=== PATIENT | female | born 1960 | race Caucasian/White ===

== ENCOUNTER 2024-09-01 07:18 | Outpatient (RCR) | payer OTHER, SELFPAY ==
[2024-08-26 08:17] LABS: Basophils % (Auto) 0 % (0-2.5); Eosinophils % (Auto) 0 % (0-10); Hematocrit 33.3 % (36.0-46.0); Hemoglobin 11.2 g/dL (12.0-16.0); Immature Granulocytes % (Auto) 2 % (0-0); Immature Granulocytes Auto 0.22 Thou/mm3 (0.00-0.00); Lymphocytes # (Auto) 0.9 Thou/mm3 (1.0-4.8); Lymphocytes % (Auto) 7 % (10-50); Mean Corpuscular HGB Conc 33.6 g/dl (31.0-37.0); Mean Corpuscular Hemoglobin 29.1 pg (25.0-35.0); Mean Corpuscular Volume 87 fL (80-100); Monocytes # (Auto) 0.6 Thou/mm3 (0.0-0.8); Monocytes % (Auto) 4 % (0-12); Neutrophils # (Auto) 12.4 Thou/mm3 (1.8-7.7); Neutrophils % (Auto) 87 % (37-80); Nucleated Red Blood Cell % 0 /100 WBC (0); Platelet Count 298 Thou/mm3 (140-440); RDW Standard Deviation 40.9 fL (36.4-46.3); Red Blood Count 3.85 Miln/mm3 (4.00-5.20); White Blood Count 14.2 Thou/mm3 (3.6-11.0)
[2024-08-26 08:46] LABS: Alanine Aminotransferase 17 U/L (10-49); Albumin, Serum 4.2 gm/dL (3.4-4.8); Albumin/Globulin Ratio 1.6 (1.2-2.2); Alkaline Phosphatase 79 U/L (46-116); Anion Gap 4 (7-16); Aspartate Amino Transferase 13 U/L (0-34); BUN/Creatinine Ratio 28 Ratio (12-20); Bilirubin,Total 0.3 mg/dL (0.3-1.2); Blood Urea Nitrogen 17 mg/dL (9-23); Calcium 10.6 mg/dL (8.3-10.6); Calcium (Corrected) 10.6 mg/dL (8.5-10.1); Carbon Dioxide 23.6 mMol/L (20.0-31.0); Chloride 108 mMol/L (98-107); Creatinine (Component) 0.6 mg/dL (0.6-1.3); Globulin 2.6 gm/dL (2.3-3.5); Glucose 132 mg/dL (74-106); Osmolality,Calculated 275 (275-295); Sodium 136 mMol/L (136-145); Total Protein 6.8 gm/dL (5.7-8.2); eGFR > 60 See Note
[2024-08-29 11:35] LABS: Basophils # (Auto) 0.1 Thou/mm3 (0.0-0.2); Basophils % (Auto) 1 % (0-2.5); Eosinophils # (Auto) 0.4 Thou/mm3 (0.0-0.5); Eosinophils % (Auto) 4 % (0-10); Hematocrit 34.8 % (36.0-46.0); Hemoglobin 11.6 g/dL (12.0-16.0); Immature Granulocytes % (Auto) 0 % (0-0); Immature Granulocytes Auto 0.04 Thou/mm3 (0.00-0.00); Lymphocytes # (Auto) 2.6 Thou/mm3 (1.0-4.8); Lymphocytes % (Auto) 25 % (10-50); Mean Corpuscular HGB Conc 33.3 g/dl (31.0-37.0); Mean Corpuscular Hemoglobin 29.3 pg (25.0-35.0); Mean Corpuscular Volume 88 fL (80-100); Monocytes # (Auto) 0.9 Thou/mm3 (0.0-0.8); Monocytes % (Auto) 8 % (0-12); Neutrophils # (Auto) 6.5 Thou/mm3 (1.8-7.7); Neutrophils % (Auto) 62 % (37-80); Nucleated Red Blood Cell % 0 /100 WBC (0); Platelet Count 238 Thou/mm3 (140-440); RDW Standard Deviation 44.5 fL (36.4-46.3); Red Blood Count 3.96 Miln/mm3 (4.00-5.20); White Blood Count 10.5 Thou/mm3 (3.6-11.0)
[2024-08-29 12:01] LABS: Alanine Aminotransferase 15 U/L (10-49); Albumin, Serum 3.7 gm/dL (3.4-4.8); Albumin/Globulin Ratio 1.5 (1.2-2.2); Alkaline Phosphatase 70 U/L (46-116); Anion Gap 3 (7-16); Aspartate Amino Transferase 13 U/L (0-34); BUN/Creatinine Ratio 30 Ratio (12-20); Bilirubin,Total 0.2 mg/dL (0.3-1.2); Blood Urea Nitrogen 15 mg/dL (9-23); Calcium 9.7 mg/dL (8.3-10.6); Calcium (Corrected) 9.9 mg/dL (8.5-10.1); Carbon Dioxide 26.4 mMol/L (20.0-31.0); Chloride 108 mMol/L (98-107); Creatinine (Component) 0.5 mg/dL (0.6-1.3); Globulin 2.4 gm/dL (2.3-3.5); Glucose 88 mg/dL (74-106); Osmolality,Calculated 273 (275-295); Potassium 4.2 mMol/L (3.4-5.1); Sodium 137 mMol/L (136-145); Total Protein 6.1 gm/dL (5.7-8.2); eGFR > 60 See Note
== END 2024-09-13 23:59 | disposition home or self-care (01) ==
LOC: SCTC 07:18
PROVIDERS: PCP Family Medicine; Referring Provider Family Medicine; Visit Provider Internal Medicine Hematology & Oncology
DX: C50.411 Malignant neoplasm of upper-outer quadrant of right female breast (principal); Z17.0 Estrogen receptor positive status [ER+]; Z17.21 Progesterone receptor positive status; Z17.32 Human epidermal growth factor receptor 2 negative status; Z90.11 Acquired absence of right breast and nipple
CPT/HCPCS: 36591; 80053; 85025; 96365; 96366; 96367; A4216; J1100; J1453; J1642; J2405; J2997; J3490; J7050; J9045; J9171; J9306; Q5117

== ENCOUNTER → 2024-09-09 | Outpatient (CLI) | payer OTHER, SELFPAY ==
--- NOTE | 2024-09-09 13:45 | XR_ITS ---
EXAMINATION: PET/CT FUSION SKULL TO THIGH EXAM DATE AND TIME: September 09, 2024 1506 hours INDICATIONS: Diagnosis right breast cancer, staging prior to treatment CTDI:vol (mGy) 20.34 DLP: (mGycm) 1829 PROCEDURE: 17.3 mCi FDG was administered intravenously To allow for distribution and uptake of radiotracer, the patient was allowed to rest quietly in a shielded room. Imaging was performed on an integrated 16-slice PET/CT scanner, with scanning from the skull base to the mid thigh. Serum blood glucose at the time of the injection was measured 94 mg/dL. CT scanning was performed without oral or intravenous contrast material. FINDINGS: Head and Neck: There is no miranda hypermetabolism in the neck. The visualized portions of the brain are normal in appearance on CT. Chest: There is no miranda hypermetabolism in the chest. There are no pulmonary nodules. Abdomen and Pelvis: There is no miranda hypermetabolism in retroperitoneal or pelvic chains. The spleen is normal in size and FDG avidity. Musculoskeletal: Widespread hypermetabolic marrow activity which may be artifactual IMPRESSION: This study is limited with numerous hypermetabolic artifactual areas Recommend whole body bone scan to better with osseous metastatic disease Recommend CT scan chest abdomen pelvis post contrast to perform more diagnostic staging
== END | disposition home or self-care (01) ==
LOC: CDIM 13:39
PROVIDERS: PCP Family Medicine; Referring Provider Internal Medicine Hematology & Oncology; Visit Provider Internal Medicine Hematology & Oncology
DX: C50.411 Malignant neoplasm of upper-outer quadrant of right female breast (principal)
CPT/HCPCS: 78815; A9552

== ENCOUNTER 2024-10-14 10:08 | Outpatient (RCR) | payer OTHER, SELFPAY ==
[2024-09-19 11:33] LABS: Basophils % (Auto) 0 % (0-2.5); Eosinophils % (Auto) 0 % (0-10); Hematocrit 34.5 % (36.0-46.0); Hemoglobin 11.5 g/dL (12.0-16.0); Immature Granulocytes % (Auto) 0 % (0-0); Immature Granulocytes Auto 0.04 Thou/mm3 (0.00-0.00); Lymphocytes # (Auto) 2.2 Thou/mm3 (1.0-4.8); Lymphocytes % (Auto) 15 % (10-50); Mean Corpuscular HGB Conc 33.3 g/dl (31.0-37.0); Mean Corpuscular Hemoglobin 29.6 pg (25.0-35.0); Mean Corpuscular Volume 89 fL (80-100); Monocytes # (Auto) 1.1 Thou/mm3 (0.0-0.8); Monocytes % (Auto) 8 % (0-12); Neutrophils # (Auto) 11.3 Thou/mm3 (1.8-7.7); Neutrophils % (Auto) 77 % (37-80); Nucleated Red Blood Cell % 0 /100 WBC (0); Platelet Count 275 Thou/mm3 (140-440); RDW Standard Deviation 46.6 fL (36.4-46.3); Red Blood Count 3.89 Miln/mm3 (4.00-5.20); White Blood Count 14.7 Thou/mm3 (3.6-11.0)
[2024-09-19 11:48] LABS: Partial Thromboplastin Time 34.3 Seconds (22.0-36.0); Prothrombin Time 11.1 Seconds (9.0-12.2)
[2024-09-19 12:01] LABS: Alanine Aminotransferase 12 U/L (10-49); Albumin, Serum 4.2 gm/dL (3.4-4.8); Albumin/Globulin Ratio 1.8 (1.2-2.2); Alkaline Phosphatase 76 U/L (46-116); Anion Gap 6 (7-16); Aspartate Amino Transferase 16 U/L (0-34); BUN/Creatinine Ratio 26 Ratio (12-20); Bilirubin,Total 0.3 mg/dL (0.3-1.2); Blood Urea Nitrogen 13 mg/dL (9-23); Calcium 10.6 mg/dL (8.3-10.6); Calcium (Corrected) 10.6 mg/dL (8.5-10.1); Chloride 104 mMol/L (98-107); Creatinine (Component) 0.5 mg/dL (0.6-1.3); Globulin 2.4 gm/dL (2.3-3.5); Glucose 101 mg/dL (74-106); Osmolality,Calculated 272 (275-295); Sodium 136 mMol/L (136-145); Total Protein 6.6 gm/dL (5.7-8.2); eGFR > 60 See Note
[2024-10-10 11:22] LABS: Basophils # (Auto) 0.1 Thou/mm3 (0.0-0.2); Basophils % (Auto) 1 % (0-2.5); Eosinophils % (Auto) 0 % (0-10); Hematocrit 34.8 % (36.0-46.0); Hemoglobin 11.6 g/dL (12.0-16.0); Immature Granulocytes % (Auto) 0 % (0-0); Immature Granulocytes Auto 0.04 Thou/mm3 (0.00-0.00); Lymphocytes # (Auto) 2.2 Thou/mm3 (1.0-4.8); Lymphocytes % (Auto) 21 % (10-50); Mean Corpuscular HGB Conc 33.3 g/dl (31.0-37.0); Mean Corpuscular Hemoglobin 29.7 pg (25.0-35.0); Mean Corpuscular Volume 89 fL (80-100); Monocytes # (Auto) 0.8 Thou/mm3 (0.0-0.8); Monocytes % (Auto) 7 % (0-12); Neutrophils # (Auto) 7.4 Thou/mm3 (1.8-7.7); Neutrophils % (Auto) 71 % (37-80); Nucleated Red Blood Cell % 0 /100 WBC (0); Platelet Count 189 Thou/mm3 (140-440); RDW Standard Deviation 45.6 fL (36.4-46.3); White Blood Count 10.5 Thou/mm3 (3.6-11.0)
[2024-10-10 11:45] LABS: Alanine Aminotransferase 18 U/L (10-49); Albumin, Serum 4.4 gm/dL (3.4-4.8); Albumin/Globulin Ratio 1.9 (1.2-2.2); Alkaline Phosphatase 88 U/L (46-116); Anion Gap 6 (7-16); Aspartate Amino Transferase 15 U/L (0-34); BUN/Creatinine Ratio 17 Ratio (12-20); Bilirubin,Total 0.3 mg/dL (0.3-1.2); Blood Urea Nitrogen 10 mg/dL (9-23); Calcium 10.3 mg/dL (8.3-10.6); Calcium (Corrected) 10.3 mg/dL (8.5-10.1); Chloride 106 mMol/L (98-107); Creatinine (Component) 0.6 mg/dL (0.6-1.3); Globulin 2.3 gm/dL (2.3-3.5); Glucose 96 mg/dL (74-106); Osmolality,Calculated 272 (275-295); Sodium 137 mMol/L (136-145); Total Protein 6.7 gm/dL (5.7-8.2); eGFR > 60 See Note
== END 2024-10-14 23:59 | disposition home or self-care (01) ==
LOC: SCTC 10:08
PROVIDERS: PCP Family Medicine; Referring Provider Family Medicine; Visit Provider Internal Medicine Hematology & Oncology
DX: Z51.11 Encounter for antineoplastic chemotherapy (principal); C50.411 Malignant neoplasm of upper-outer quadrant of right female breast; Z17.0 Estrogen receptor positive status [ER+]; Z17.21 Progesterone receptor positive status; Z17.32 Human epidermal growth factor receptor 2 negative status; Z90.11 Acquired absence of right breast and nipple; Z80.3 Family history of malignant neoplasm of breast; E66.9 Obesity, unspecified; Z68.41 Body mass index [BMI] 40.0-44.9, adult
CPT/HCPCS: 36591; 80053; 85025; 85610; 85730; 96367; 96372; 96413; 96417; A4216; J1100; J1453; J1642; J2405; J2506; J7040; J7050; J9045; J9171; J9306; Q5117

== ENCOUNTER → 2024-10-28 | Outpatient (CLI) | payer OTHER, SELFPAY ==
--- NOTE | 2024-10-28 14:00 | ECHO_ITS ---
Transthoracic Echo Report Ht (in): 66 Wt (lb): 235 Exam Location: Echo Lab Status: Preadmit Shuttle Operator: Donna Delacruz Indications: Procedure Performed: BP: / HR: Rhythm: Sinus Technical Quality: Fair MEASUREMENTS (Male / Female) Normal Values 2D ECHO LV Diastolic Diameter PLAX 4.6 cm 4.2 - 5.9 / 3.9 - 5.3 cm LV Systolic Diameter PLAX 3.3 cm IVS Diastolic Thickness 1.1 cm 0.6 - 1.0 / 0.6 - 0.9 cm LVPW Diastolic Thickness 1.2 cm 0.6 - 1.0 / 0.6 - 0.9 cm LV Relative Wall Thickness 0.5 LVOT Diameter 1.8 cm LA Volume Index 21.2 cm?/m? 16 - 28 cm?/m? Ascending Aorta Diameter 3.0 cm M-MODE Aortic Root Diameter MM 2.7 cm LA Systolic Diameter MM 3.9 cm LA Ao Ratio MM 1.4 AV Cusp Separation MM 1.9 cm DOPPLER AV Peak Velocity 165.0 cm/s AV Peak Gradient 10.9 mmHg AV Mean Gradient 5.0 mmHg AV Velocity Time Integral 27.0 cm LVOT Peak Velocity 147.0 cm/s LVOT Peak Gradient 8.6 mmHg LVOT Velocity Time Integral 30.4 cm AV Area Cont Eq vti 2.9 cm? AV Area Cont Eq pk 2.3 cm? MV Peak Velocity 91.8 cm/s MV Peak Gradient 3.4 mmHg MV Mean Velocity 59.4 cm/s MV Mean Gradient 2.0 mmHg MV Area PHT 3.5 cm? Mitral E Point Velocity 77.1 cm/s Mitral A Point Velocity 87.3 cm/s Mitral E to A Ratio 0.9 LV E' Lateral Velocity 12.3 cm/s Mitral E to LV E' Lateral Ratio 6.3 LV E' Septal Velocity 9.1 cm/s Mitral E to LV E' Septal Ratio 8.4 TR Peak Velocity 183.0 cm/s TR Peak Gradient 13.4 mmHg FINDINGS Left Ventricle Normal left ventricular size, wall thickness, systolic function with no obvious regional wall motion abnormalities. The ejection fraction is visually estimated at 55-60%. Right Ventricle The right ventricle is normal in size and systolic function. The estimated right ventricular systoli c pressure, 18mmHg. RAP 5. Left Atrium The left atrium is normal by two-dimensional, color flow and Doppler imaging with no structural abnormalities, no thrombus formation present. Right Atrium The right atrium is normal by two-dimensional imaging, color flow and Doppler imaging with no struct ural abnormalities, no thrombus formation present. Atrial Septum The interatrial septum appears normal with no evidence of a shunt. Aorta The aorta is normal by two-dimensional, color flow and Doppler interrogation. Mitral Valve The mitral valve is normal by two-dimensional, color flow and Doppler interrogation. There is trace mitral valve regurgitation. Aortic Valve The aortic valve is trileaflet and normal by two-dimensional, color flow and Doppler interrogation. There is no significant aortic valve regurgitation. Tricuspid Valve The tricuspid valve is normal by two-dimensional, color flow and Doppler interrogation. There is tra ce tricuspid valve regurgitation. Pulmonic Valve There is no significant pulmonic valve regurgitation. Vessels The pulmonary artery appears normal. The inferior vena cava pulmonary and hepatic veins appear spencer l. Pericardium The pericardium is normal by two-dimensional imaging. There is no significant pericardial effusion. CONCLUSIONS Indication: Malignant Neoplasm of female breast. Normal LV size and function. Stage I diastolic dysfunction. Estimated EF 55-60% Normal RV size and function. Trace MR, TR. Ervin Olivares (Electronically Signed) Final Date: 28 October 2024 19:47
== END | disposition home or self-care (01) ==
PROVIDERS: PCP Family Medicine; Referring Provider Internal Medicine Hematology & Oncology; Visit Provider Internal Medicine Hematology & Oncology
DX: I08.1 Rheumatic disorders of both mitral and tricuspid valves (principal); C50.411 Malignant neoplasm of upper-outer quadrant of right female breast
CPT/HCPCS: 93306

== ENCOUNTER 2024-11-13 10:44 | Outpatient (RCR) | payer OTHER, SELFPAY ==
[2024-10-31 09:54] LABS: Basophils # (Auto) 0.1 Thou/mm3 (0.0-0.2); Basophils % (Auto) 1 % (0-2.5); Eosinophils % (Auto) 0 % (0-10); Hematocrit 31.1 % (36.0-46.0); Hemoglobin 10.5 g/dL (12.0-16.0); Immature Granulocytes % (Auto) 0 % (0-0); Immature Granulocytes Auto 0.03 Thou/mm3 (0.00-0.00); Lymphocytes # (Auto) 1.8 Thou/mm3 (1.0-4.8); Lymphocytes % (Auto) 24 % (10-50); Mean Corpuscular HGB Conc 33.8 g/dl (31.0-37.0); Mean Corpuscular Hemoglobin 30.2 pg (25.0-35.0); Mean Corpuscular Volume 89 fL (80-100); Monocytes # (Auto) 0.7 Thou/mm3 (0.0-0.8); Monocytes % (Auto) 9 % (0-12); Neutrophils # (Auto) 5.1 Thou/mm3 (1.8-7.7); Neutrophils % (Auto) 67 % (37-80); Nucleated Red Blood Cell % 0 /100 WBC (0); Platelet Count 136 Thou/mm3 (140-440); RDW Standard Deviation 46.7 fL (36.4-46.3); Red Blood Count 3.48 Miln/mm3 (4.00-5.20); White Blood Count 7.6 Thou/mm3 (3.6-11.0)
[2024-10-31 10:09] LABS: Alanine Aminotransferase 17 U/L (10-49); Albumin, Serum 4.2 gm/dL (3.4-4.8); Alkaline Phosphatase 88 U/L (46-116); Anion Gap 5 (7-16); Aspartate Amino Transferase 13 U/L (0-34); BUN/Creatinine Ratio 18 Ratio (12-20); Bilirubin,Total 0.4 mg/dL (0.3-1.2); Blood Urea Nitrogen 9 mg/dL (9-23); Carbon Dioxide 26.7 mMol/L (20.0-31.0); Chloride 107 mMol/L (98-107); Creatinine (Component) 0.5 mg/dL (0.6-1.3); Globulin 2.1 gm/dL (2.3-3.5); Glucose 90 mg/dL (74-106); Osmolality,Calculated 276 (275-295); Potassium 3.8 mMol/L (3.4-5.1); Sodium 139 mMol/L (136-145); Total Protein 6.3 gm/dL (5.7-8.2); eGFR > 60 See Note
--- NOTE | 2024-11-13 13:59 | CTCFLWUP_ITS ---
Patient: VERA CORREIA : 1960 Page 2 of 2 FOLLOW UP NOTE DATE OF SERVICE: 11/13/2024 NAME: VERA CORREIA ACCOUNT: [id number] : 1960 AGE: 63 INTERVAL HISTORY: Patient is on chemotherapy and doing well. Patient is exercising and trying to lose weight. She also eats healthier. Has minimal nausea. Denies any vomiting. 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 S/p lumpectomy and sentinel lymph node biopsy on 06/30/2024. Mammographically detected ER positive, GA positive, HER2/naomi positive (IHC 3+), grade invasive ductal carcinoma of the right breast, status post needle core biopsy (05/14/2024) Patient is BRCA 1and2 negative. 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 S/p lumpectomy and sentinel lymph node biopsy on 06/30/2024. TREATMENT HISTORY: Care?Plan Start?Date Cycle Day Intent TCH?Perjeta?adjuvant 08/03/2024 1 21 Curative?(adjuvant) HISTORY OF PRESENT ILLNESS: Vera Correia is a 63-year-old ENG speaking female with following oncology history. 02/22/2024: Ms. Correia had bilateral diagnostic digital mammograms 03/31/2024: Ms. Correia had right breast diagnostic mammogram and ultrasound 04/23/2024: BRCA 1and2 negative 05/14/2024: Ms. 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 Tobacco?Use?Years:?45 Tobacco Use:?Smoked off/on x 45 yrs - 1 PPD at most - now 2 cig/day ETOH?Use:?Socially Drug?Note:?Denies Social?History?Note:?Lives?with? NEWS WRITER HISTORY: Menarche?-?Age:?10 Menopause:?51 Hormone?Use:?None :?0 Live?Births:?0 MEDICATIONS: 1. atorvastatin - 40 mg 1 tab Daily 2. CeleBREX - 100 mg 1 Capsule Twice a Day 3. Emend - 125 mg 4. Flexeril - 10 mg 1 tab Daily 5. Imodium A-D - 2 mg 2 mg daily as directed 6. Lexapro - 10 mg 1 tab Daily 7. montelukast - 10 mg 1 tab Daily 8. oxyBUTYnin chloride - 15 mg 1 tab Daily 9. Wellbutrin XL - 150 mg 1 tab Daily Medications Last Reconciled by Keyana Smith MA on 11/13/2024 ALLERGIES: No Known Drug Allergies REVIEW OF SYSTEMS: A complete 14-point review of systems was performed and is negative except as noted in interval history. PHYSICAL EXAMINATION: VITAL SIGNS: Temperature?98.2, B/P?134/87, Oxygen?Saturation?97% Weight?234?lbs (Change?since?11/04/24:?-16.6?lbs) PAIN: 0 - No pain ECOG Performance Status: 0 - Asymptomatic and fully active GENERAL APPEARANCE: Appears well, in no apparent distress, appropriately interactive. HEENT: Normocephalic, no temporal wasting, normal conjunctiva, no scleral icterus, normal hearing, lips without lesions, neck normal range of motion. CARDIOVASCULAR: Not assessed. PULMONARY: Normal respiratory effort, no respiratory distress or use of accessory muscles, speaking in full sentences, no tachypnea. EXTREMITIES: No pedal edema or cyanosis. SKIN: Normal skin appearance. NEUROLOGIC: Alert and oriented x4. PSHYCHIATRIC: Appropriate affect, mood normal, behavior normal, intact thought and speech. LABORATORY DATA: I have personally reviewed and interpreted each of the patient?s relevant lab tests, abnormal findings are below: Date 10/31/24 ??WHITE?BLOOD?COUNT?(Thou/mm3) 7.6 ??RED?BLOOD?COUNT?(Miln/mm3) 3.48?L ??HEMOGLOBIN?(gm/dl) 10.5?L ??HEMATOCRIT?(%) 31.1?L ??PLATELET?COUNT?(Thou/mm3) 136?L ??NEUTROPHILS?%,?AUTO?(%) 67 ??LYMPH?%,?AUTO?(%) 24 ??NEUTROPHILS,?AUTO?(Thou/mm3) 5.1 ASSESSMENT/PLAN: 1. 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 S/p lumpectomy and sentinel lymph node biopsy on 06/30/2024. On chemotherapy with TCH and Perjeta since July 2024 mammographically detected ER positive, GA positive, HER2/naomi positive (IHC 3+), grade invasive ductal carcinoma of the right breast, status post needle core biopsy (05/14/2024). Mammogram showed the mass to be 10 mm in size Strong family history of breast cancers (patient's sister, mother, grandmother as well as great-grandmother had breast cancers) Ms. Correia is BRCA 1 and 2 negative Obesity patient is actively trying to lose weight Echocardiogram shows ejection fraction of 55 to 60% PET/CT scan do not show any metastatic disease. Patient's bone marrow was very active likely from Neulasta Bone density normal. I will continue chemotherapy with TCHP CBC CMP RETURN TO CLINIC: 4 weeks BILLING AND COMPLIANCE: I reviewed external records from providers outside my specialty as summarized above. I spent a total of 50 minutes on this patient?s care on the day of their visit excluding time spent related to any billed procedures. This time includes time spent with the patient as well as time spent documenting in the medical record, reviewing patients records and tests, obtaining history, placing orders, communicating with other healthcare professionals, counseling the patient, family or caregiver, and/or care coordination for the diagnoses above. Electronically Signed by: Kareem Abarca MD T: 1:57 PM CC: PCP: Kelle Sarabia Referring: Kelle Sarabia This document was completed utilizing speech recognition software. Grammatical errors, random word insertions, pronoun errors, and incomplete sentences are an occasional consequence of this system due to software limitations, ambient noise, and hardware issues. Any formal questions or concerns about the content, text or information contained within the body of this dictation should be directly addressed to the provider for clarification.
== END 2024-11-14 23:59 | disposition home or self-care (01) ==
LOC: SCTC 10:44
PROVIDERS: PCP Family Medicine; Referring Provider Family Medicine; Visit Provider Internal Medicine Hematology & Oncology
DX: Z51.11 Encounter for antineoplastic chemotherapy (principal); C50.411 Malignant neoplasm of upper-outer quadrant of right female breast; Z17.0 Estrogen receptor positive status [ER+]; Z17.21 Progesterone receptor positive status; Z17.32 Human epidermal growth factor receptor 2 negative status; Z90.11 Acquired absence of right breast and nipple; Z80.3 Family history of malignant neoplasm of breast; E66.9 Obesity, unspecified; Z68.38 Body mass index [BMI] 38.0-38.9, adult
CPT/HCPCS: 36591; 80053; 85025; 96367; 96372; 96413; 96417; 99212; A4216; J1100; J1453; J1642; J2405; J2506; J7050; J9045; J9171; J9306; Q5117; G0463

== ENCOUNTER 2024-12-12 09:00 | Outpatient (RCR) | payer OTHER, SELFPAY ==
[2024-11-24 07:40] LABS: Basophils % (Auto) 0 % (0-2.5); Eosinophils % (Auto) 0 % (0-10); Hematocrit 32.8 % (36.0-46.0); Hemoglobin 11.3 g/dL (12.0-16.0); Immature Granulocytes % (Auto) 2 % (0-0); Lymphocytes # (Auto) 0.6 Thou/mm3 (1.0-4.8); Lymphocytes % (Auto) 7 % (10-50); Mean Corpuscular HGB Conc 34.5 g/dl (31.0-37.0); Mean Corpuscular Hemoglobin 31.1 pg (25.0-35.0); Mean Corpuscular Volume 90 fL (80-100); Monocytes # (Auto) 0.2 Thou/mm3 (0.0-0.8); Monocytes % (Auto) 2 % (0-12); Neutrophils # (Auto) 7.9 Thou/mm3 (1.8-7.7); Neutrophils % (Auto) 89 % (37-80); Nucleated Red Blood Cell % 0 /100 WBC (0); Platelet Count 176 Thou/mm3 (140-440); Red Blood Count 3.63 Miln/mm3 (4.00-5.20)
[2024-11-24 08:07] LABS: Alanine Aminotransferase 13 U/L (10-49); Albumin, Serum 4.2 gm/dL (3.4-4.8); Albumin/Globulin Ratio 1.8 (1.2-2.2); Alkaline Phosphatase 84 U/L (46-116); Anion Gap 5 (7-16); Aspartate Amino Transferase 13 U/L (0-34); BUN/Creatinine Ratio 32 Ratio (12-20); Bilirubin,Total 0.3 mg/dL (0.3-1.2); Blood Urea Nitrogen 16 mg/dL (9-23); Calcium 10.4 mg/dL (8.3-10.6); Calcium (Corrected) 10.4 mg/dL (8.5-10.1); Carbon Dioxide 24.9 mMol/L (20.0-31.0); Chloride 107 mMol/L (98-107); Creatinine (Component) 0.5 mg/dL (0.6-1.3); Globulin 2.3 gm/dL (2.3-3.5); Glucose 146 mg/dL (74-106); LDH (Lactate Dehydrogenase) 193 U/L (120-246); Osmolality,Calculated 278 (275-295); Sodium 137 mMol/L (136-145); Total Protein 6.5 gm/dL (5.7-8.2); eGFR > 60 See Note
[2024-11-24 08:10] LABS: Folate 13.11 ng/mL (>5.38); Vitamin B12 1661 pg/mL (211-911)
[2024-11-24 09:04] LABS: Ferritin 277 ng/mL (7.3-270.7); Total Iron Binding Capacity 264 mcg/dL (250-425)
[2024-11-24 09:14] LABS: Iron 98 mcg/dL (50-170); Percent Iron Saturation 37 % (20-55); Unsaturated Iron Binding 166 (225-295)
[2024-12-02 07:03] LABS: Haptoglobin* 193 mg/dL (43-212)
== END 2024-12-12 23:59 | disposition home or self-care (01) ==
LOC: SCTC 09:00
PROVIDERS: PCP Family Medicine; Referring Provider Family Medicine; Visit Provider Internal Medicine Hematology & Oncology
DX: Z51.11 Encounter for antineoplastic chemotherapy (principal); C50.411 Malignant neoplasm of upper-outer quadrant of right female breast; Z17.0 Estrogen receptor positive status [ER+]; Z17.21 Progesterone receptor positive status; Z17.32 Human epidermal growth factor receptor 2 negative status; Z80.3 Family history of malignant neoplasm of breast; E66.9 Obesity, unspecified; Z68.39 Body mass index [BMI] 39.0-39.9, adult; Z90.11 Acquired absence of right breast and nipple
CPT/HCPCS: 36591; 80053; 82607; 82728; 82746; 83010; 83540; 83550; 83615; 85025; 96367; 96372; 96413; 96417; A4216; J1100; J1453; J1642; J2405; J2506; J7040; J7050; J9045; J9171; J9306; Q5117

== ENCOUNTER → 2024-12-23 | Outpatient (CLI) | payer OTHER, SELFPAY ==
--- NOTE | 2024-12-23 14:15 | XR_ITS ---
Examination: Diagnostic digital mammography, unilateral, right Computer aided detection 3-D breast Tomosynthesis, unilateral Date and time of exam: 12/23/2024, 2:11 PM Comparisons: May 2015 through March 2024 Indications: Six-month postlumpectomy Technique: Nonmagnified MLO, CC views of the right breast have been obtained, reconstructed from 3-D Tomosynthesis images. R2 computer aided detection program utilized for evaluation of suspicious masses and/or abnormal calcifications. 3-D Tomosynthesis images obtained. Technologist: Findings: The breasts are heterogeneously dense, which may obscure small masses. Expected postoperative changes in the right breast. No evidence of residual or recurrent masses or suspicious calcifications. Impression: BI-RADS category 2: Benign findings Recommend 1 year follow-up mammogram
== END | disposition home or self-care (01) ==
LOC: CDIM 14:00
PROVIDERS: Referring Provider Surgery; Visit Provider Surgery
DX: R92.321 Mammographic fibroglandular density, right breast (principal); C50.411 Malignant neoplasm of upper-outer quadrant of right female breast
CPT/HCPCS: 77061; 77065; G0279

== ENCOUNTER 2025-01-05 07:53 | Outpatient (RCR) | payer OTHER, SELFPAY ==
[2024-12-12 10:18] LABS: Basophils % (Auto) 1 % (0-2.5); Eosinophils % (Auto) 0 % (0-10); Hematocrit 29.2 % (36.0-46.0); Hemoglobin 9.8 g/dL (12.0-16.0); Immature Granulocytes % (Auto) 0 % (0-0); Immature Granulocytes Auto 0.01 Thou/mm3 (0.00-0.00); Lymphocytes # (Auto) 1.5 Thou/mm3 (1.0-4.8); Lymphocytes % (Auto) 21 % (10-50); Mean Corpuscular HGB Conc 33.6 g/dl (31.0-37.0); Mean Corpuscular Hemoglobin 31.6 pg (25.0-35.0); Mean Corpuscular Volume 94 fL (80-100); Monocytes # (Auto) 0.6 Thou/mm3 (0.0-0.8); Monocytes % (Auto) 9 % (0-12); Neutrophils # (Auto) 5.1 Thou/mm3 (1.8-7.7); Neutrophils % (Auto) 70 % (37-80); Nucleated Red Blood Cell % 0 /100 WBC (0); Platelet Count 148 Thou/mm3 (140-440); RDW Standard Deviation 55.2 fL (36.4-46.3); White Blood Count 7.4 Thou/mm3 (3.6-11.0)
[2024-12-12 10:38] LABS: Alanine Aminotransferase 13 U/L (10-49); Albumin/Globulin Ratio 1.8 (1.2-2.2); Alkaline Phosphatase 81 U/L (46-116); Anion Gap 5 (7-16); Aspartate Amino Transferase 13 U/L (0-34); BUN/Creatinine Ratio 24 Ratio (12-20); Bilirubin,Total 0.3 mg/dL (0.3-1.2); Blood Urea Nitrogen 12 mg/dL (9-23); Calcium 9.9 mg/dL (8.3-10.6); Calcium (Corrected) 9.9 mg/dL (8.5-10.1); Carbon Dioxide 27.3 mMol/L (20.0-31.0); Chloride 108 mMol/L (98-107); Creatinine (Component) 0.5 mg/dL (0.6-1.3); Globulin 2.2 gm/dL (2.3-3.5); Glucose 91 mg/dL (74-106); Osmolality,Calculated 279 (275-295); Sodium 140 mMol/L (136-145); Total Protein 6.2 gm/dL (5.7-8.2); eGFR > 60 See Note
[2025-01-02 11:32] LABS: Basophils % (Auto) 1 % (0-2.5); Eosinophils % (Auto) 0 % (0-10); Hematocrit 28.2 % (36.0-46.0); Hemoglobin 9.4 g/dL (12.0-16.0); Immature Granulocytes % (Auto) 0 % (0-0); Immature Granulocytes Auto 0.02 Thou/mm3 (0.00-0.00); Lymphocytes # (Auto) 1.4 Thou/mm3 (1.0-4.8); Lymphocytes % (Auto) 27 % (10-50); Mean Corpuscular HGB Conc 33.3 g/dl (31.0-37.0); Mean Corpuscular Hemoglobin 32.4 pg (25.0-35.0); Mean Corpuscular Volume 97 fL (80-100); Monocytes # (Auto) 0.5 Thou/mm3 (0.0-0.8); Monocytes % (Auto) 10 % (0-12); Neutrophils # (Auto) 3.3 Thou/mm3 (1.8-7.7); Neutrophils % (Auto) 62 % (37-80); Nucleated Red Blood Cell % 0 /100 WBC (0); Platelet Count 138 Thou/mm3 (140-440); RDW Standard Deviation 56.8 fL (36.4-46.3); White Blood Count 5.3 Thou/mm3 (3.6-11.0)
[2025-01-02 11:58] LABS: Alanine Aminotransferase 11 U/L (10-49); Albumin, Serum 3.9 gm/dL (3.4-4.8); Albumin/Globulin Ratio 1.7 (1.2-2.2); Alkaline Phosphatase 70 U/L (46-116); Anion Gap 5 (7-16); Aspartate Amino Transferase < 10 U/L (0-34); BUN/Creatinine Ratio 26 Ratio (12-20); Bilirubin,Total 0.3 mg/dL (0.3-1.2); Blood Urea Nitrogen 13 mg/dL (9-23); Calcium 10.1 mg/dL (8.3-10.6); Calcium (Corrected) 10.2 mg/dL (8.5-10.1); Chloride 108 mMol/L (98-107); Creatinine (Component) 0.5 mg/dL (0.6-1.3); Globulin 2.3 gm/dL (2.3-3.5); Glucose 94 mg/dL (74-106); Osmolality,Calculated 277 (275-295); Potassium 3.8 mMol/L (3.4-5.1); Sodium 139 mMol/L (136-145); Total Protein 6.2 gm/dL (5.7-8.2); eGFR > 60 See Note
--- NOTE | 2025-01-18 18:45 | CTCFLWUP_ITS ---
Patient: VERA CORREIA : 1960 Page 6 of 9 FOLLOW UP NOTE DATE OF SERVICE: 12/25/2024 NAME: VERA CORREIA ACCOUNT: [id number] : 1960 AGE: 64 INTERVAL HISTORY: Patient is on TCHP and completed chemotherapy . she is doing well. She will cont HP . 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 S/p lumpectomy and sentinel lymph node biopsy on 06/30/2024. Mammographically detected ER positive, KS positive, HER2/naomi positive (IHC 3+), grade invasive ductal carcinoma of the right breast, status post needle core biopsy (05/14/2024) Patient is BRCA 1and2 negative. Strong family history of breast cancer (patient's sister, mother, grandmother and great-grandmother had breast cancers DATE OF DIAGNOSIS: 06/30/2024 STAGE/TNM: Stage II(pT1c, pN1a, M0), ER positive, KS positive, HER2/naomi overexpressed, high-grade invasive ductal carcinoma of the right breast with lymphovascular invasion. S/p lumpectomy and sentinel lymph node biopsy on 06/30/2024. TREATMENT HISTORY: Care?Plan Start?Date Cycle Day Intent TCH?Perjeta?adjuvant 08/03/2024 1 21 Curative?(adjuvant) HISTORY OF PRESENT ILLNESS: Vera Correia is a 64-year-old ENG speaking female with following oncology history. 02/22/2024: Ms. Correia had bilateral diagnostic digital mammograms 03/31/2024: Ms. Correia had right breast diagnostic mammogram and ultrasound 04/23/2024: BRCA 1and2 negative 05/14/2024: Ms. 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 Tobacco?Use?Years:?45 Tobacco Use:?Smoked off/on x 45 yrs - 1 PPD at most - now 2 cig/day ETOH?Use:?Socially Drug?Note:?Denies Social?History?Note:?Lives?with? 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 atorvastatin - 40 mg 1 tab Daily 2. CeleBREX - 100 mg 1 Capsule Twice a Day 3. Emend - 125 mg 4. Flexeril - 10 mg 1 tab Daily 5. Imodium A-D - 2 mg 2 mg daily as directed 6. Lexapro - 10 mg 1 tab Daily 7. montelukast - 10 mg 1 tab Daily 8. oxyBUTYnin chloride - 15 mg 1 tab Daily 9. Wellbutrin XL - 150 mg 1 tab Daily Medications Last Reconciled by Keyana Smith MA on 12/25/2024 ALLERGIES: No Known Drug Allergies REVIEW OF SYSTEMS: A complete 14-point review of systems was performed and is negative except as noted in interval history. PHYSICAL EXAMINATION: VITAL SIGNS: Temperature?98.4, B/P?121/78, Oxygen?Saturation?95% Weight?226?lbs (Change?since?12/16/24:?-10.4?lbs) PAIN: 0 - No pain ECOG Performance Status: None GENERAL APPEARANCE: Appears well, in no apparent distress, appropriately interactive. HEENT: Normocephalic, no temporal wasting, normal conjunctiva, no scleral icterus, normal hearing, lips without lesions, neck normal range of motion. CARDIOVASCULAR: Not assessed. PULMONARY: Normal respiratory effort, no respiratory distress or use of accessory muscles, speaking in full sentences, no tachypnea. EXTREMITIES: No pedal edema or cyanosis. SKIN: Normal skin appearance. NEUROLOGIC: Alert and oriented x4. PSHYCHIATRIC: Appropriate affect, mood normal, behavior normal, intact thought and speech. LABORATORY DATA: I have personally reviewed and interpreted each of the patient?s relevant lab tests, abnormal findings are below: Date 12/12/24 01/02/25 ??WHITE?BLOOD?COUNT?(Thou/mm3) 7.4 5.3 ??RED?BLOOD?COUNT?(Miln/mm3) 3.10?L 2.90?L ??HEMOGLOBIN?(gm/dl) 9.8?L 9.4?L ??HEMATOCRIT?(%) 29.2?L 28.2?L ??PLATELET?COUNT?(Thou/mm3) 148 138?L ??NEUTROPHILS?%,?AUTO?(%) 70 62 ??LYMPH?%,?AUTO?(%) 21 27 ??NEUTROPHILS,?AUTO?(Thou/mm3) 5.1 3.3 ??GLUCOSE,RANDOM?(mg/dL) 91 94 ??BLOOD?UREA?NITROGEN?(mg/dL) 12 13 ??CREATININE?(mg/dL) 0.50?L 0.50?L ??SODIUM?(mmol/L) 140 139 ??POTASSIUM?(mmol/L) 4.0 3.8 ??CHLORIDE?(mmol/L) 108?H 108?H ??CrCl?(CandG)?(ml/min) 141.80 139.52 ??AST/SGOT?(Unit/L) 13 <?10 ??ALT/SGPT?(Unit/L) 13 11 ??ALKALINE?PHOSPHATASE?(Unit/L) 81 70 ??BILIRUBIN,?TOTAL?(mg/dL) 0.3 0.3 ??PROTEIN?TOTAL?(gm/dl) 6.2 6.2 ??ALBUMIN,?SERUM?(gm/dl) 4.0 3.9 ??GLOBULIN?(gm/dl) 2.2?L 2.3 ??ALBUMIN/GLOBULIN?RATIO 1.8 1.7 ??CALCIUM,?SERUM?(mg/dL) 9.9 10.1 ??CALCIUM?SERUM?(CORRECTED)?(mg/dL) 9.9 10.2?H ASSESSMENT/PLAN: 1. Stage IIa (pT1c, pN1a, M0), ER positive, KS positive, HER2/naomi overexpressed, high-grade invasive ductal carcinoma of the right breast with lymphovascular invasion. S/p lumpectomy and sentinel lymph node biopsy on 06/30/2024. On chemotherapy with TCH and Perjeta since July 2024 mammographically detected ER positive, KS positive, HER2/naomi positive (IHC 3+), grade invasive ductal carcinoma of the right breast, status post needle core biopsy (05/14/2024). Mammogram showed the mass to be 10 mm in size Strong family history of breast cancers (patient's sister, mother, grandmother as well as great-grandmother had breast cancers) Ms. Correia is BRCA 1 and 2 negative Obesity patient is actively trying to lose weight Echocardiogram shows ejection fraction of 55 to 60% PET/CT scan do not show any metastatic disease. Patient's bone marrow was very active likely from Neulasta Bone density normal. Cont HP as per plan Okay to start adjuvant radiation RTC in 2 months We can hold HP during radiation ,no contraindication ORDERS: Order # Description [id number] Follow Up Appointment [id number] Lab Appointment [id number] CBC + Comprehensive Metabolic Panel [id number] Follow Up Appointment [id number] Cardiac ECHO [id number] Lab Appointment [id number] CBC + Comprehensive Metabolic Panel [id number] Follow Up Appointment [id number] Lab Appointment [id number] CBC + Comprehensive Metabolic Panel [id number] Follow Up Appointment [id number] Lab Appointment [id number] CBC + Comprehensive Metabolic Panel [id number] Follow Up Appointment [id number] Cardiac ECHO [id number] Lab Appointment [id number] CBC + Comprehensive Metabolic Panel [id number] Follow Up Appointment [id number] Lab Appointment [id number] CBC + Comprehensive Metabolic Panel [id number] Follow Up Appointment [id number] Lab Appointment [id number] CBC + Comprehensive Metabolic Panel [id number] Follow Up Appointment [id number] Cardiac ECHO [id number] Lab Appointment [id number] CBC + Comprehensive Metabolic Panel [id number] Follow Up Appointment [id number] Lab Appointment [id number] CBC + Comprehensive Metabolic Panel [id number] Follow Up Appointment [id number] Lab Appointment [id number] CBC + Comprehensive Metabolic Panel RETURN TO CLINIC: 2 months BILLING AND COMPLIANCE: I reviewed external records from providers outside my specialty as summarized above. I spent a total of 50 minutes on this patient?s care on the day of their visit excluding time spent related to any billed procedures. This time includes time spent with the patient as well as time spent documenting in the medical record, reviewing patients records and tests, obtaining history, placing orders, communicating with other healthcare professionals, counseling the patient, family or caregiver, and/or care coordination for the diagnoses above. Electronically Signed by: {Object.Sanct_ID*PnP.NameFL@M}, {Object.Sanct_ID*PnP.Suffix@U} D: {Object.Sanct_Date} T: {Object.Sanct_Time} CC: Manoj?Jewels? PCP: Manoj Donis Referring: Manoj Donis This document was completed utilizing speech recognition software. Grammatical errors, random word insertions, pronoun errors, and incomplete sentences are an occasional consequence of this system due to software limitations, ambient noise, and hardware issues. Any formal questions or concerns about the content, text or information contained within the body of this dictation should be directly addressed to the provider for clarification.
== END 2025-01-12 23:59 | disposition home or self-care (01) ==
LOC: SCTC 07:53
PROVIDERS: Internal Medicine Hematology & Oncology; PCP Family Medicine; Referring Provider Family Medicine; Visit Provider Radiology Therapeutic Radiology
DX: Z51.11 Encounter for antineoplastic chemotherapy (principal); C50.411 Malignant neoplasm of upper-outer quadrant of right female breast; Z90.11 Acquired absence of right breast and nipple; Z17.0 Estrogen receptor positive status [ER+]; Z17.21 Progesterone receptor positive status; Z17.32 Human epidermal growth factor receptor 2 negative status; Z80.3 Family history of malignant neoplasm of breast; E66.9 Obesity, unspecified; Z68.39 Body mass index [BMI] 39.0-39.9, adult
CPT/HCPCS: 36591; 77470; 80053; 85025; 96367; 96372; 96413; 96417; 99212; 99213; A4216; J1100; J1453; J1642; J2405; J2506; J7040; J7050; J9045; J9171; J9306; Q5117; G0463

== ENCOUNTER → 2025-01-23 | Outpatient (CLI) | payer OTHER, SELFPAY ==
--- NOTE | 2025-01-23 13:30 | ECHO_ITS ---
Transthoracic Echo Report Ht (in): 66 Wt (lb): 230 Exam Location: Echo Lab Status: Preadmit Air Compressor Engineer: SPENCER Putnam^^^^ Indications: Procedure Performed: BP: 132 / 77 HR: 90 Technical Quality: Technically difficult study MEASUREMENTS (Male / Female) Normal Values 2D ECHO LV Diastolic Diameter PLAX 4.3 cm 4.2 - 5.9 / 3.9 - 5.3 cm LV Systolic Diameter PLAX 2.7 cm IVS Diastolic Thickness 0.9 cm 0.6 - 1.0 / 0.6 - 0.9 cm LVPW Diastolic Thickness 0.9 cm 0.6 - 1.0 / 0.6 - 0.9 cm LV Relative Wall Thickness 0.4 LVOT Diameter 1.5 cm Aortic Root Diameter 2.8 cm LA Systolic Diameter LX 4.3 cm 3.0 - 4.0 / 2.7 - 3.8 cm LA Volume Index 28.0 cm?/m? 16 - 28 cm?/m? DOPPLER AV Peak Velocity 206.3 cm/s AV Peak Gradient 17.0 mmHg AV Mean Gradient 8.3 mmHg AV Velocity Time Integral 36.9 cm LVOT Peak Velocity 162.0 cm/s LVOT Peak Gradient 10.5 mmHg LVOT Velocity Time Integral 40.6 cm LVOT Cardiac Index 2869.7 cm?/min?m? AV Area Cont Eq vti 1.9 cm? AV Area Cont Eq pk 1.4 cm? MV Area PHT 3.7 cm? Mitral E Point Velocity 77.0 cm/s Mitral A Point Velocity 84.2 cm/s Mitral E to A Ratio 0.9 LV E' Lateral Velocity 10.4 cm/s Mitral E to LV E' Lateral Ratio 7.4 LV E' Septal Velocity 8.2 cm/s Mitral E to LV E' Septal Ratio 9.4 TR Peak Velocity 270.0 cm/s TR Peak Gradient 29.2 mmHg FINDINGS Left Ventricle Normal left ventricular size, wall thickness, systolic function with no obvious regional wall motion abnormalities. There is grade I diastolic dysfunction of the left ventricle (impaired relaxation pattern). The left ventricular ejection fraction is normal, estimated at 55-60%. Right Ventricle The right ventricle is normal in size and systolic function. The estimated right ventricular systolic pressure, 28 mmHg. Left Atrium The left atrium is normal by two-dimensional, color flow and Doppler imaging with no structural abnormalities, no thrombus formation present. Right Atrium The right atrium is normal by two-dimensional imaging, color flow and Doppler imaging with no structural abnormalities, no thrombus formation present. Atrial Septum The interatrial septum appears normal with no evidence of a shunt. Aorta The aorta is normal by two-dimensional, color flow and Doppler interrogation. Mitral Valve Trace to mild mitral regurgitation. Mild mitral annular calcification. Aortic Valve Mild aortic valve stenosis, mean gradient 8.3 mmHg, YULIA 1.9 cm?. Tricuspid Valve There is mild tricuspid valve regurgitation. Pulmonic Valve The pulmonic valve is not well visualized. There is no significant pulmonic valve regurgitation. Vessels The pulmonary artery appears normal. The inferior vena cava pulmonary and hepatic ins appear normal. Pericardium The pericardium is normal by two-dimensional imaging. There is no significant pericardial effusion. CONCLUSIONS indication: cancer center The transthoracic study is normal by two-dimensional, color flow imaging and Doppler interrogation. Normal left ventricular size and function. Approximate ejection fraction is 65%. Trace mitral and trace tricuspid regurgitation noted. No wall motion abnormalities aortic valve sclerosis with nos tenosis Aortic velocity mildly increased no significant stenosis. Jyoti Car (Electronically Signed) Final Date: 23 January 2025 16:57
== END | disposition home or self-care (01) ==
PROVIDERS: PCP Family Medicine; Referring Provider Internal Medicine Hematology & Oncology; Visit Provider Internal Medicine Hematology & Oncology
DX: I08.1 Rheumatic disorders of both mitral and tricuspid valves (principal); C50.411 Malignant neoplasm of upper-outer quadrant of right female breast
CPT/HCPCS: 93306

== ENCOUNTER 2025-02-11 13:02 | Outpatient (RCR) | payer OTHER, SELFPAY ==
--- NOTE | 2025-01-15 16:47 | CTCSNOTE_ITS ---
[facility] [address] [place], [place] [address] CT Simulation Note Date: 01/14/2025 MR# [id number] Name: VITOR DOAN : 1960 (A) DIAGNOSIS: C50.411 Malignant neoplasm of upper-outer quadrant of right female breast (B) Patient was placed in supine position and used vaklok for immobilization purposes. (C) CT slices included R breast (D) 3 D Will be needed for maximum sparing of adjacent normal critical structures. (E) Patient tolerated the simulation well and left the room in good condition. Electronically signed by: Manoj Donis MD, JORDANR 01/15/2025 4:45 PM
[2025-01-23 11:13] LABS: Basophils % (Auto) 1 % (0-2.5); Eosinophils # (Auto) 0.2 Thou/mm3 (0.0-0.5); Eosinophils % (Auto) 3 % (0-10); Hematocrit 29.6 % (36.0-46.0); Hemoglobin 9.7 g/dL (12.0-16.0); Immature Granulocytes % (Auto) 0 % (0-0); Immature Granulocytes Auto 0.02 Thou/mm3 (0.00-0.00); Lymphocytes # (Auto) 1.3 Thou/mm3 (1.0-4.8); Lymphocytes % (Auto) 19 % (10-50); Mean Corpuscular HGB Conc 32.8 g/dl (31.0-37.0); Mean Corpuscular Hemoglobin 32.1 pg (25.0-35.0); Mean Corpuscular Volume 98 fL (80-100); Monocytes # (Auto) 0.7 Thou/mm3 (0.0-0.8); Monocytes % (Auto) 10 % (0-12); Neutrophils # (Auto) 4.8 Thou/mm3 (1.8-7.7); Neutrophils % (Auto) 68 % (37-80); Nucleated Red Blood Cell % 0 /100 WBC (0); Platelet Count 220 Thou/mm3 (140-440); RDW Standard Deviation 50.3 fL (36.4-46.3); Red Blood Count 3.02 Miln/mm3 (4.00-5.20)
[2025-01-23 11:45] LABS: Alanine Aminotransferase 8 U/L (10-49); Albumin, Serum 3.8 gm/dL (3.4-4.8); Albumin/Globulin Ratio 1.5 (1.2-2.2); Alkaline Phosphatase 73 U/L (46-116); Anion Gap 8 (7-16); Aspartate Amino Transferase 12 U/L (0-34); BUN/Creatinine Ratio 28 Ratio (12-20); Bilirubin,Total 0.3 mg/dL (0.3-1.2); Blood Urea Nitrogen 14 mg/dL (9-23); Calcium 9.9 mg/dL (8.3-10.6); Calcium (Corrected) 10.1 mg/dL (8.5-10.1); Chloride 108 mMol/L (98-107); Creatinine (Component) 0.5 mg/dL (0.6-1.3); Globulin 2.5 gm/dL (2.3-3.5); Glucose 94 mg/dL (74-106); Osmolality,Calculated 283 (275-295); Potassium 3.5 mMol/L (3.4-5.1); Sodium 142 mMol/L (136-145); Total Protein 6.3 gm/dL (5.7-8.2); eGFR > 60 See Note
== END 2025-02-11 23:59 | disposition home or self-care (01) ==
LOC: SCTC 13:02
PROVIDERS: Internal Medicine Hematology & Oncology; PCP Family Medicine; Referring Provider Radiology Therapeutic Radiology; Visit Provider Radiology Therapeutic Radiology
DX: Z51.0 Encounter for antineoplastic radiation therapy (principal); Z51.11 Encounter for antineoplastic chemotherapy; C50.411 Malignant neoplasm of upper-outer quadrant of right female breast; Z17.0 Estrogen receptor positive status [ER+]; Z17.21 Progesterone receptor positive status; Z17.32 Human epidermal growth factor receptor 2 negative status; Z90.11 Acquired absence of right breast and nipple
CPT/HCPCS: 36591; 77014; 77280; 77290; 77295; 77300; 77334; 77336; 77412; 77417; 80053; 85025; 96413; 96417; A4216; J1642; J7050; J9306; Q5117

== ENCOUNTER 2025-03-10 07:20 | Outpatient (RCR) | payer OTHER, SELFPAY ==
[2025-02-13 09:00] LABS: Basophils # (Auto) 0.1 Thou/mm3 (0.0-0.2); Basophils % (Auto) 1 % (0-2.5); Eosinophils # (Auto) 0.3 Thou/mm3 (0.0-0.5); Eosinophils % (Auto) 4 % (0-10); Hematocrit 30.2 % (36.0-46.0); Hemoglobin 10.4 g/dL (12.0-16.0); Immature Granulocytes % (Auto) 0 % (0-0); Immature Granulocytes Auto 0.01 Thou/mm3 (0.00-0.00); Lymphocytes # (Auto) 1.1 Thou/mm3 (1.0-4.8); Lymphocytes % (Auto) 16 % (10-50); Mean Corpuscular HGB Conc 34.4 g/dl (31.0-37.0); Mean Corpuscular Hemoglobin 31.8 pg (25.0-35.0); Mean Corpuscular Volume 92 fL (80-100); Monocytes # (Auto) 0.6 Thou/mm3 (0.0-0.8); Monocytes % (Auto) 9 % (0-12); Neutrophils % (Auto) 70 % (37-80); Nucleated Red Blood Cell % 0 /100 WBC (0); Platelet Count 232 Thou/mm3 (140-440); RDW Standard Deviation 44.4 fL (36.4-46.3); Red Blood Count 3.27 Miln/mm3 (4.00-5.20); White Blood Count 7.1 Thou/mm3 (3.6-11.0)
[2025-02-13 09:37] LABS: Alanine Aminotransferase 8 U/L (10-49); Albumin, Serum 3.9 gm/dL (3.4-4.8); Albumin/Globulin Ratio 1.5 (1.2-2.2); Alkaline Phosphatase 77 U/L (46-116); Anion Gap 8 (7-16); Aspartate Amino Transferase 12 U/L (0-34); BUN/Creatinine Ratio 30 Ratio (12-20); Bilirubin,Total 0.3 mg/dL (0.3-1.2); Blood Urea Nitrogen 15 mg/dL (9-23); Calcium 9.9 mg/dL (8.3-10.6); Carbon Dioxide 26.9 mMol/L (20.0-31.0); Chloride 108 mMol/L (98-107); Creatinine (Component) 0.5 mg/dL (0.6-1.3); Globulin 2.6 gm/dL (2.3-3.5); Glucose 97 mg/dL (74-106); Osmolality,Calculated 285 (275-295); Sodium 143 mMol/L (136-145); Total Protein 6.5 gm/dL (5.7-8.2); eGFR > 60 See Note
[2025-03-10 08:14] LABS: Basophils % (Auto) 1 % (0-2.5); Eosinophils # (Auto) 0.3 Thou/mm3 (0.0-0.5); Eosinophils % (Auto) 4 % (0-10); Hematocrit 30.9 % (36.0-46.0); Hemoglobin 10.7 g/dL (12.0-16.0); Immature Granulocytes % (Auto) 0 % (0-0); Immature Granulocytes Auto 0.02 Thou/mm3 (0.00-0.00); Lymphocytes # (Auto) 0.9 Thou/mm3 (1.0-4.8); Lymphocytes % (Auto) 13 % (10-50); Mean Corpuscular HGB Conc 34.6 g/dl (31.0-37.0); Mean Corpuscular Volume 90 fL (80-100); Monocytes # (Auto) 0.6 Thou/mm3 (0.0-0.8); Monocytes % (Auto) 9 % (0-12); Neutrophils # (Auto) 5.1 Thou/mm3 (1.8-7.7); Neutrophils % (Auto) 73 % (37-80); Nucleated Red Blood Cell % 0 /100 WBC (0); Platelet Count 236 Thou/mm3 (140-440); RDW Standard Deviation 43.1 fL (36.4-46.3); Red Blood Count 3.45 Miln/mm3 (4.00-5.20); White Blood Count 6.9 Thou/mm3 (3.6-11.0)
[2025-03-10 08:47] LABS: Alanine Aminotransferase 8 U/L (10-49); Albumin, Serum 4.1 gm/dL (3.4-4.8); Albumin/Globulin Ratio 1.8 (1.2-2.2); Alkaline Phosphatase 74 U/L (46-116); Anion Gap 7 (7-16); Aspartate Amino Transferase 11 U/L (0-34); BUN/Creatinine Ratio 32 Ratio (12-20); Bilirubin,Total 0.3 mg/dL (0.3-1.2); Blood Urea Nitrogen 16 mg/dL (9-23); Calcium 9.7 mg/dL (8.3-10.6); Calcium (Corrected) 9.7 mg/dL (8.5-10.1); Carbon Dioxide 27.3 mMol/L (20.0-31.0); Chloride 107 mMol/L (98-107); Creatinine (Component) 0.5 mg/dL (0.6-1.3); Globulin 2.3 gm/dL (2.3-3.5); Glucose 100 mg/dL (74-106); Osmolality,Calculated 282 (275-295); Potassium 4.2 mMol/L (3.4-5.1); Sodium 141 mMol/L (136-145); Total Protein 6.4 gm/dL (5.7-8.2); eGFR > 60 See Note
== END 2025-03-14 23:59 | disposition home or self-care (01) ==
LOC: SCTC 07:20
PROVIDERS: Internal Medicine Hematology & Oncology; PCP Family Medicine; Referring Provider Family Medicine; Visit Provider Radiology Therapeutic Radiology
DX: Z51.0 Encounter for antineoplastic radiation therapy (principal); Z51.11 Encounter for antineoplastic chemotherapy; C50.411 Malignant neoplasm of upper-outer quadrant of right female breast; Z17.0 Estrogen receptor positive status [ER+]; Z17.21 Progesterone receptor positive status; Z17.32 Human epidermal growth factor receptor 2 negative status; L59.9 Disorder of the skin and subcutaneous tissue related to radiation, unspecified; Y84.2 Radiological procedure and radiotherapy as the cause of abnormal reaction of the patient, or of later complication, without mention of misadventure at the time of the procedure; Z90.11 Acquired absence of right breast and nipple
CPT/HCPCS: 36591; 77290; 77300; 77332; 77336; 77412; 77417; 80053; 85025; 96413; 96417; A4216; J1642; J7040; J7050; J9306; Q5117

== ENCOUNTER 2025-03-31 07:20 | Outpatient (RCR) | payer OTHER, SELFPAY ==
--- NOTE | 2025-03-17 14:57 | CTCTSUMM_ITS ---
[facility] [address], [place] [address] Treatment Summary Date: 03/17/2025 MR#: [id number] Name: VITOR DOAN : 1960 Dx: C50.411 Referring Physician: Torito Abarca (A) Diagnosis: [ICD10] C50.411 Malignant neoplasm of upper-outer quadrant of right female breast; [ICD10] C50.411 Malignant neoplasm of upper-outer quadrant of right female breast (B) Aim of Treatment: Curative (adjuvant) (C) Concomitant Chemotherapy: Sequential (D) Radiation Dates: 02/02/2025 through 03/02/2025 Treatment Prescription UOQ boost Electron boost 15 MeV E- 1,000 cGy 5 200 cGy Approved R breast 2 FIELD SEG Mixed Mode 3,990 cGy 15 266 cGy Approved (E) All hickman were treated using customized MLC Blocks (F) Finding at Discharge: Patient seen for first follow-up on 03/17/2025. There was good healing of the skin reaction of the treated breast. (G) Discharge Instructions and F/U Appt was given: The patient was also advised to continue follow-up with Dr. Abarca and primary care physician: Cc: Kelle Sarabia MD Electronically signed by: Manoj Donis MD, JORDANR 03/17/2025 2:54 PM
[2025-03-27 11:09] LABS: Basophils % (Auto) 1 % (0-2.5); Eosinophils # (Auto) 0.3 Thou/mm3 (0.0-0.5); Eosinophils % (Auto) 4 % (0-10); Hematocrit 32.5 % (36.0-46.0); Hemoglobin 10.6 g/dL (12.0-16.0); Immature Granulocytes % (Auto) 0 % (0-0); Immature Granulocytes Auto 0.01 Thou/mm3 (0.00-0.00); Lymphocytes # (Auto) 1.1 Thou/mm3 (1.0-4.8); Lymphocytes % (Auto) 16 % (10-50); Mean Corpuscular HGB Conc 32.6 g/dl (31.0-37.0); Mean Corpuscular Hemoglobin 29.6 pg (25.0-35.0); Mean Corpuscular Volume 91 fL (80-100); Monocytes # (Auto) 0.6 Thou/mm3 (0.0-0.8); Monocytes % (Auto) 9 % (0-12); Neutrophils # (Auto) 4.8 Thou/mm3 (1.8-7.7); Neutrophils % (Auto) 70 % (37-80); Nucleated Red Blood Cell % 0 /100 WBC (0); Platelet Count 266 Thou/mm3 (140-440); RDW Standard Deviation 43.6 fL (36.4-46.3); Red Blood Count 3.58 Miln/mm3 (4.00-5.20); White Blood Count 6.9 Thou/mm3 (3.6-11.0)
[2025-03-27 11:44] LABS: Alanine Aminotransferase 10 U/L (10-49); Albumin/Globulin Ratio 1.6 (1.2-2.2); Alkaline Phosphatase 75 U/L (46-116); Anion Gap 9 (7-16); Aspartate Amino Transferase 12 U/L (0-34); BUN/Creatinine Ratio 34 Ratio (12-20); Bilirubin,Total 0.3 mg/dL (0.3-1.2); Blood Urea Nitrogen 17 mg/dL (9-23); Calcium 10.1 mg/dL (8.3-10.6); Calcium (Corrected) 10.1 mg/dL (8.5-10.1); Carbon Dioxide 27.2 mMol/L (20.0-31.0); Chloride 106 mMol/L (98-107); Creatinine (Component) 0.5 mg/dL (0.6-1.3); Globulin 2.5 gm/dL (2.3-3.5); Glucose 93 mg/dL (74-106); Osmolality,Calculated 284 (275-295); Potassium 3.8 mMol/L (3.4-5.1); Sodium 142 mMol/L (136-145); Total Protein 6.5 gm/dL (5.7-8.2); eGFR > 60 See Note
--- NOTE | 2025-03-30 23:41 | CTCFLWUP_ITS ---
Patient: VERA CORREIA : 1960 Page 8 of 11 FOLLOW UP NOTE DATE OF SERVICE: 03/30/2025 NAME: VERA CORREIA ACCOUNT: [id number] : 1960 AGE: 64 INTERVAL HISTORY: Patient is on HP and completed chemotherapy TC . Subjective: Chief Complaint Joint pain and swelling in knees, knuckles, and wrists, inability to make fists or cut meat, difficulty straightening hands History of Present Illness Vera Miguel, a 64-year-old female with a history of stage 2 high-grade breast cancer, presents for follow-up after completing chemotherapy, including Perjeta 2 weeks ago. She reports doing fantastic overall but is experiencing persistent joint pain and swelling. The patient describes pain and swelling in her feet, knees, knuckles, and wrists. She states she cannot make fists, cut her own meat, or straighten her hands. The patient notes that her hands have a dumbbell shape and it hurts to straighten them. She reports massaging her hands frequently to alleviate discomfort. These symptoms appear to have worsened after stopping steroids, which she describes as horrible coming off. The joint issues are impacting her daily functioning, limiting her ability to perform basic tasks. Ms. Miguel reports ongoing weight loss, which she views positively. She notes a decreased appetite, stating I can't eat as much as I used to because there's no space. She also mentions that junk food now makes her feel unwell, leading to dietary changes. The patient has stopped taking protein supplements, specifically mentioning discontinuing Premieres after chemotherapy. Regarding her cancer treatment, the patient has completed chemotherapy and is continuing Herceptin and Perjeta. She denies any side effects from these medications. She is adherent to her current treatment regimen and appears to be progressing well in her cancer care. Medications and Supplements - Perjeta - Completed 2 weeks ago - Herceptin - Continuing treatment - Steroids - Discontinued - Caused horrible side effects when stopping - Arimidex - One tablet daily - Can be taken in the morning or at bedtime - May cause hot flashes and worsen arthralgia - Premier protein supplements - Discontinued after chemotherapy Review of Systems General: Positive for weight loss. Skin: Positive for dry skin on hands. Musculoskeletal: Positive for joint pain, swelling in feet, knees, and knuckles. Positive for difficulty making fists, cutting meat, and straightening hands. Gastrointestinal: Positive for feeling full quickly, decreased appetite. Objective: Physical Examination Musculoskeletal: Hands appear curved, not straight. Dumbbell shape noted in hands. Increased thickness felt in hands compared to legs. Unable to straighten hands fully. Skin: Hands observed to be very dry. Laboratory, Imaging, and Diagnostic Test Results - Echocardiogram (January 2025): - Normal heart function - Mild regurgitation - No stenosis ONCOLOGY HISTORY:?[facility] Hx? 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 S/p lumpectomy and sentinel lymph node biopsy on 06/30/2024. Mammographically detected ER positive, IL positive, HER2/naomi positive (IHC 3+), grade invasive ductal carcinoma of the right breast, status post needle core biopsy (05/14/2024) Patient is BRCA 1and2 negative. Strong family history of breast cancer (patient's sister, mother, grandmother and great-grandmother had breast cancers DATE OF DIAGNOSIS: 06/30/2024 STAGE/TNM: Stage II(pT1c, pN1a, M0), ER positive, IL positive, HER2/naomi overexpressed, high-grade invasive ductal carcinoma of the right breast with lymphovascular invasion. S/p lumpectomy and sentinel lymph node biopsy on 06/30/2024. TREATMENT HISTORY: Care?Plan Start?Date Cycle Day Intent TCH?Perjeta?adjuvant 08/03/2024 1 21 Curative?(adjuvant) HISTORY OF PRESENT ILLNESS: Vera Correia is a 64-year-old ENG speaking female with following oncology history. 02/22/2024: Ms. Correia had bilateral diagnostic digital mammograms 03/31/2024: Ms. Correia had right breast diagnostic mammogram and ultrasound 04/23/2024: BRCA 1and2 negative 05/14/2024: Ms. 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 Tobacco?Use?Years:?45 Tobacco Use:?Smoked off/on x 45 yrs - 1 PPD at most - now 2 cig/day ETOH?Use:?Socially Drug?Note:?Denies Social?History?Note:?Lives?with? WEAP[employer] OFFICER HISTORY: Menarche?-?Age:?10 Menopause:?51 Hormone?Use:?None :?0 Live?Births:?0 MEDICATIONS: 1. Arimidex - 1 mg 1 tab Daily 2. atorvastatin - 40 mg 1 tab Daily 3. CeleBREX - 100 mg 1 Capsule Twice a Day 4. Emend - 125 mg 5. Flexeril - 10 mg 1 tab Daily 6. Imodium A-D - 2 mg 2 mg daily as directed 7. Lexapro - 10 mg 1 tab Daily 8. montelukast - 10 mg 1 tab Daily 9. oxyBUTYnin chloride - 15 mg 1 tab Daily 10. prednisone - 5 mg 1 tab twice Daily with food 11. Wellbutrin XL - 150 mg 1 tab Daily?Palabra Meds? Medications Last Reconciled by Keyana Smith MA on 03/30/2025 ALLERGIES: No Known Drug Allergies REVIEW OF SYSTEMS: A complete 14-point review of systems was performed and is negative except as noted in interval history. PHYSICAL EXAMINATION:?CloneBlock PE? VITAL SIGNS: Temperature?98.8, B/P?123/81, Oxygen?Saturation?97% PAIN: 0 - No pain ECOG Performance Status: 1 - Symptomatic; ambulatory; restricted in strenuous activity GENERAL APPEARANCE: Appears well, in no apparent distress, appropriately interactive. HEENT: Normocephalic, no temporal wasting, normal conjunctiva, no scleral icterus, normal hearing, lips without lesions, neck normal range of motion. CARDIOVASCULAR: Not assessed. PULMONARY: Normal respiratory effort, no respiratory distress or use of accessory muscles, speaking in full sentences, no tachypnea. EXTREMITIES: No pedal edema or cyanosis. As per interval history SKIN: Normal skin appearance. NEUROLOGIC: Alert and oriented x4. PSHYCHIATRIC: Appropriate affect, mood normal, behavior normal, intact thought and speech. LABORATORY DATA: I have personally reviewed and interpreted each of the patient?s relevant lab tests, abnormal findings are below: Date 03/10/25 03/27/25 ??WHITE?BLOOD?COUNT?(Thou/mm3) 6.9 6.9 ??RED?BLOOD?COUNT?(Miln/mm3) 3.45?L 3.58?L ??HEMOGLOBIN?(gm/dl) 10.7?L 10.6?L ??HEMATOCRIT?(%) 30.9?L 32.5?L ??PLATELET?COUNT?(Thou/mm3) 236 266 ??NEUTROPHILS?%,?AUTO?(%) 73 70 ??LYMPH?%,?AUTO?(%) 13 16 ??NEUTROPHILS,?AUTO?(Thou/mm3) 5.1 4.8 ??GLUCOSE,RANDOM?(mg/dL) 100 93 ??BLOOD?UREA?NITROGEN?(mg/dL) 16 17 ??CREATININE?(mg/dL) 0.50?L 0.50?L ??SODIUM?(mmol/L) 141 142 ??POTASSIUM?(mmol/L) 4.2 3.8 ??CHLORIDE?(mmol/L) 107 106 ??CrCl?(CandG)?(ml/min) 136.02 135.69 ??AST/SGOT?(Unit/L) 11 12 ??ALT/SGPT?(Unit/L) 8?L 10 ??ALKALINE?PHOSPHATASE?(Unit/L) 74 75 ??BILIRUBIN,?TOTAL?(mg/dL) 0.3 0.3 ??PROTEIN?TOTAL?(gm/dl) 6.4 6.5 ??ALBUMIN,?SERUM?(gm/dl) 4.1 4.0 ??GLOBULIN?(gm/dl) 2.3 2.5 ??ALBUMIN/GLOBULIN?RATIO 1.8 1.6 ??CALCIUM,?SERUM?(mg/dL) 9.7 10.1 ??CALCIUM?SERUM?(CORRECTED)?(mg/dL) 9.7 10.1 ASSESSMENT/PLAN:?MichaelStella Abarca Assessment/Plan? Vera Miguel, 64-year-old female with stage 2 high-grade breast cancer, completed Perjeta 2 weeks ago, presenting with joint pain and swelling. Breast Cancer Assessment: Stage 2 high-grade breast cancer, ER/IL positive. Patient completed chemotherapy including Perjeta 2 weeks ago. Scheduled to continue Herceptin and Perjeta. Recent echocardiogram in January showed mild regurgitation without stenosis. Left ventricular function remains good. Patient reports continued weight loss post-chemotherapy. 1. 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 S/p lumpectomy and sentinel lymph node biopsy on 06/30/2024. On chemotherapy with TCH and Perjeta since July 2024 mammographically detected ER positive, IL positive, HER2/naomi positive (IHC 3+), grade invasive ductal carcinoma of the right breast, status post needle core biopsy (05/14/2024). Mammogram showed the mass to be 10 mm in size Strong family history of breast cancers (patient's sister, mother, grandmother as well as great-grandmother had breast cancers) Ms. Correia is BRCA 1 and 2 negative Completed adjuvant radiation Plan: - Continue Herceptin and Perjeta as scheduled - Start Arimidex 1 tablet PO daily (patient's choice of morning or bedtime) will hold for now until hand pain is resolved - Order Cheri test for monitoring every 3 months - Schedule echocardiogram in April - Annual PET scan - Monitor blood pressure - Encourage increased water intake, especially during summer - Recommend natural fruit-infused water for hydration - Encourage maintaining low body fat content - Follow-up appointment in June Polyarthralgia Assessment: Patient reports pain and swelling in multiple joints including knees, knuckles, wrists, and feet. Unable to make fists or cut meat. Hands appear curved with a dumbbell shape. Symptoms worsened after discontinuation of steroids post-chemotherapy. Clinical presentation suggests possible rheumatoid arthritis or other autoimmune condition rather than osteoarthritis. Menopause and chemotherapy may be contributing factors. Plan: - Order inflammatory markers: ESR, CRP, RNA, R-factor - Refer to rheumatology for evaluation - Refer to dermatology - Recommend daily joint massage with oil (almond, sesame, or cannabis oil) - Consider topical treatments like Icy Hot or red lard oil - Initiate steroid therapy after blood work results (dose and duration to be determined) - Educate on potential worsening of arthralgia with Arimidex - Encourage gentle exercise and movement as tolerated Weight Loss Assessment: Patient reports continued weight loss post-chemotherapy, attributed to decreased appetite and food aversion during treatment. Recent weight loss may also be related to pain and limited mobility from joint symptoms. Plan: - Encourage protein supplement intake - Monitor weight at follow-up appointments - Educate on balanced nutrition for cancer survivors ORDERS: Order # Description [id number] Follow Up Appointment [id number] Sedimentation Rate [id number] LIZABETH - Antinuclear Antibody + Rheumatoid Factor + Lupus anticoagulant panel [id number] Thyroid Stimulating Hormone + Assay Triiodothyronine (T3) [id number] Follow Up 3 Months [id number] PET/CT of Skull to mid-thigh for Restaging [id number] Follow Up 4 Week [id number] CBC + Comprehensive Metabolic Panel [id number] Lab Appointment [id number] Follow Up Appointment [id number] Cardiac ECHO [id number] CBC + Comprehensive Metabolic Panel [id number] Lab Appointment [id number] Follow Up Appointment [id number] CBC + Comprehensive Metabolic Panel [id number] Lab Appointment [id number] Follow Up Appointment [id number] CBC + Comprehensive Metabolic Panel [id number] Lab Appointment [id number] Follow Up Appointment [id number] Cardiac ECHO [id number] CBC + Comprehensive Metabolic Panel [id number] Lab Appointment [id number] Follow Up Appointment [id number] Lab Appointment [id number] CBC + Comprehensive Metabolic Panel [id number] Follow Up Appointment [id number] Lab Appointment [id number] CBC + Comprehensive Metabolic Panel RETURN TO CLINIC: BILLING AND COMPLIANCE: I reviewed external records from providers outside my specialty as summarized above. I spent a total of 50 minutes on this patient?s care on the day of their visit excluding time spent related to any billed procedures. This time includes time spent with the patient as well as time spent documenting in the medical record, reviewing patients records and tests, obtaining history, placing orders, communicating with other healthcare professionals, counseling the patient, family or caregiver, and/or care coordination for the diagnoses above. Electronically Signed by: Kareem Abarca MD T: 11:39 PM CC: LANEY Limon PCP: Kelle Sarabia Referring: Kelle Sarabia This document was completed utilizing speech recognition software. Grammatical errors, random word insertions, pronoun errors, and incomplete sentences are an occasional consequence of this system due to software limitations, ambient noise, and hardware issues. Any formal questions or concerns about the content, text or information contained within the body of this dictation should be directly addressed to the provider for clarification.
[2025-03-31 08:31] LABS: Sed Rate (ESR) 44 mm/hr (0-30)
[2025-03-31 08:39] LABS: Thyroid Stimulating Hormone 1.35 uIU/mL (0.55-4.78)
[2025-03-31 08:40] LABS: Free T3 3.4 pg/mL (2.3-4.2)
[2025-03-31 15:31] LABS: RA Screen Negative (Negative)
[2025-04-03 06:10] LABS: Hexagonal Phase Confirm NEGATIVE (NEGATIVE); PTT-LA Screen 81 seconds (< OR = 40); dRVVT Screen 36 seconds (< OR = 45)
[2025-04-06 06:59] LABS: ANA Pattern NUCLEAR, HOMOGENEOUS; ANA Pattern NUCLEAR, SPECKLED; ANA Screen, IFA POSITIVE (NEGATIVE)
== END 2025-04-13 23:59 | disposition home or self-care (01) ==
LOC: SCTC 07:20
PROVIDERS: PCP Family Medicine; Referring Provider Family Medicine; Visit Provider Internal Medicine Hematology & Oncology
DX: Z51.11 Encounter for antineoplastic chemotherapy (principal); C50.411 Malignant neoplasm of upper-outer quadrant of right female breast; Z17.0 Estrogen receptor positive status [ER+]; Z17.21 Progesterone receptor positive status; Z17.31 Human epidermal growth factor receptor 2 positive status; Z80.3 Family history of malignant neoplasm of breast; M25.562 Pain in left knee; M25.561 Pain in right knee; M25.542 Pain in joints of left hand; M25.541 Pain in joints of right hand; M25.532 Pain in left wrist; M25.531 Pain in right wrist; M25.572 Pain in left ankle and joints of left foot; M25.571 Pain in right ankle and joints of right foot; R63.4 Abnormal weight loss; Z68.36 Body mass index [BMI] 36.0-36.9, adult
CPT/HCPCS: 36591; 80053; 84443; 84450; 84481; 85025; 85598; 85613; 85652; 85730; 86038; 86039; 86430; 96413; 96417; 99212; A4216; J1642; J7040; J7050; J9306; Q5117; G0463

== ENCOUNTER 2025-05-12 07:23 | Outpatient (RCR) | payer OTHER, SELFPAY ==
[2025-04-20 13:56] LABS: Basophils # (Auto) 0.0 Thou/mm3 (0.0-0.2); Basophils % (Auto) 0 % (0-2.5); Eosinophils # (Auto) 0.1 Thou/mm3 (0.0-0.5); Eosinophils % (Auto) 1 % (0-10); Hematocrit 33.7 % (36.0-46.0); Hemoglobin 11.4 g/dL (12.0-16.0); Immature Granulocytes Auto 0.02 Thou/mm3 (0.00-0.00); Lymphocytes # (Auto) 1.2 Thou/mm3 (1.0-4.8); Lymphocytes % (Auto) 15 % (10-50); Mean Corpuscular HGB Conc 33.8 g/dl (31.0-37.0); Mean Corpuscular Hemoglobin 29.6 pg (25.0-35.0); Mean Corpuscular Volume 88 fL (80-100); Monocytes # (Auto) 0.5 Thou/mm3 (0.0-0.8); Monocytes % (Auto) 7 % (0-12); Neutrophils # (Auto) 5.6 Thou/mm3 (1.8-7.7); Neutrophils % (Auto) 76 % (37-80); Nucleated Red Blood Cell # 0.00 Thou/mm3 (0.00-0.00); Nucleated Red Blood Cell % 0 /100 WBC (0); Platelet Count 224 Thou/mm3 (140-440); RDW Standard Deviation 45.8 fL (36.4-46.3); Red Blood Count 3.85 Miln/mm3 (4.00-5.20); White Blood Count 7.5 Thou/mm3 (3.6-11.0)
[2025-04-20 14:21] LABS: Alanine Aminotransferase 12 U/L (10-49); Albumin, Serum 4.0 gm/dL (3.4-4.8); Albumin/Globulin Ratio 1.5 (1.2-2.2); Alkaline Phosphatase 76 U/L (46-116); Anion Gap 9 (7-16); Aspartate Amino Transferase 13 U/L (0-34); BUN/Creatinine Ratio 22 Ratio (12-20); Bilirubin,Total 0.4 mg/dL (0.3-1.2); Blood Urea Nitrogen 13 mg/dL (9-23); Calcium 10.3 mg/dL (8.3-10.6); Calcium (Corrected) 10.3 mg/dL (8.5-10.1); Carbon Dioxide 27.2 mMol/L (20.0-31.0); Chloride 107 mMol/L (98-107); Creatinine (Component) 0.6 mg/dL (0.6-1.3); Globulin 2.6 gm/dL (2.3-3.5); Glucose 76 mg/dL (74-106); Osmolality,Calculated 284 (275-295); Potassium 3.9 mMol/L (3.4-5.1); Sodium 143 mMol/L (136-145); Total Protein 6.6 gm/dL (5.7-8.2); eGFR > 60 See Note
[2025-05-11 13:47] LABS: Basophils # (Auto) 0.1 Thou/mm3 (0.0-0.2); Basophils % (Auto) 1 % (0-2.5); Eosinophils # (Auto) 0.1 Thou/mm3 (0.0-0.5); Eosinophils % (Auto) 1 % (0-10); Hematocrit 33.4 % (36.0-46.0); Hemoglobin 11.0 g/dL (12.0-16.0); Immature Granulocytes Auto 0.03 Thou/mm3 (0.00-0.00); Lymphocytes # (Auto) 1.3 Thou/mm3 (1.0-4.8); Lymphocytes % (Auto) 15 % (10-50); Mean Corpuscular HGB Conc 32.9 g/dl (31.0-37.0); Mean Corpuscular Hemoglobin 29.6 pg (25.0-35.0); Mean Corpuscular Volume 90 fL (80-100); Monocytes # (Auto) 0.7 Thou/mm3 (0.0-0.8); Monocytes % (Auto) 8 % (0-12); Neutrophils # (Auto) 6.4 Thou/mm3 (1.8-7.7); Neutrophils % (Auto) 75 % (37-80); Nucleated Red Blood Cell # 0.00 Thou/mm3 (0.00-0.00); Nucleated Red Blood Cell % 0 /100 WBC (0); Platelet Count 282 Thou/mm3 (140-440); RDW Standard Deviation 45.9 fL (36.4-46.3); Red Blood Count 3.72 Miln/mm3 (4.00-5.20); White Blood Count 8.6 Thou/mm3 (3.6-11.0)
[2025-05-11 14:37] LABS: Alanine Aminotransferase 12 U/L (10-49); Albumin, Serum 3.9 gm/dL (3.4-4.8); Albumin/Globulin Ratio 1.5 (1.2-2.2); Alkaline Phosphatase 80 U/L (46-116); Anion Gap 7 (7-16); Aspartate Amino Transferase 13 U/L (0-34); BUN/Creatinine Ratio 23 Ratio (12-20); Bilirubin,Total 0.2 mg/dL (0.3-1.2); Blood Urea Nitrogen 14 mg/dL (9-23); Calcium 10.1 mg/dL (8.3-10.6); Calcium (Corrected) 10.2 mg/dL (8.5-10.1); Carbon Dioxide 27.7 mMol/L (20.0-31.0); Chloride 106 mMol/L (98-107); Creatinine (Component) 0.6 mg/dL (0.6-1.3); Globulin 2.6 gm/dL (2.3-3.5); Glucose 83 mg/dL (74-106); Osmolality,Calculated 280 (275-295); Potassium 3.8 mMol/L (3.4-5.1); Sodium 141 mMol/L (136-145); Total Protein 6.5 gm/dL (5.7-8.2); eGFR > 60 See Note
== END 2025-05-14 23:59 | disposition home or self-care (01) ==
LOC: SCTC 07:23
PROVIDERS: PCP Family Medicine; Referring Provider Family Medicine; Visit Provider Internal Medicine Hematology & Oncology
DX: Z51.11 Encounter for antineoplastic chemotherapy (principal); C50.411 Malignant neoplasm of upper-outer quadrant of right female breast; Z17.0 Estrogen receptor positive status [ER+]; Z17.21 Progesterone receptor positive status; Z90.11 Acquired absence of right breast and nipple; Z17.31 Human epidermal growth factor receptor 2 positive status; Z79.811 Long term (current) use of aromatase inhibitors; M25.562 Pain in left knee; M25.561 Pain in right knee; M25.542 Pain in joints of left hand; M25.541 Pain in joints of right hand; M25.532 Pain in left wrist; M25.531 Pain in right wrist; M25.572 Pain in left ankle and joints of left foot; M25.571 Pain in right ankle and joints of right foot; R63.4 Abnormal weight loss; Z68.36 Body mass index [BMI] 36.0-36.9, adult; Z80.3 Family history of malignant neoplasm of breast
CPT/HCPCS: 36591; 80053; 85025; 96413; 96417; A4216; J1642; J7040; J7050; J9306; Q5117

== ENCOUNTER → 2025-05-12 | Outpatient (CLI) | payer OTHER, SELFPAY ==
--- NOTE | 2025-05-12 11:30 | XR_ITS ---
Examination: CT chest with intravenous contrast CT abdomen with intravenous contrast CT pelvis with intravenous contrast 2-D coronal and sagittal reconstructions Time of exam: May 12, 2025, 1137 hours Comparison PET/CT scan September 09, 2024 INDICATIONS: Diagnosis malignant neoplasm upper outer quadrant right female breast, restaging, history right lumpectomy radiation therapy chemotherapy CTDI: vol (mGy) : 13.8 DLP: (mGycm): 991 Technique: Multiple axial images of the chest, abdomen and pelvis with intravenous contrast, 3.0 mm slice thickness. Images obtained post intravenous injection Isovue 370 60 cc. 2-D sagittal and coronal reconstructions. Low dose protocols were performed. One or more of the following dose reduction techniques were used; automated exposure control, adjustment of the mA and/or KV according to patient size, use of iterative reconstruction technique. Findings: No thoracic aortic aneurysm dilatation No pulmonary artery filling defects on this non-CTA study No interval paratracheal tracheobronchial or bronchopulmonary adenopathy 5 mm pulmonary nodule right upper lobe image 194 4 mm pulmonary nodule left upper lobe image 82 Posttreatment changes right breast with skin thickening, surgical clips in the axillary region, no breast or chest wall mass, no pathologic axillary lymphadenopathy No pneumonia or pulmonary edema or pleural disease No visualized liver or splenic lesion Cholelithiasis No pancreatic or adrenal mass Aorta normal size No pathologic abdominal or pelvic lymphadenopathy No hydronephrosis No bowel obstruction Scattered colonic diverticulosis, no diverticulitis Atrophic uterus Urinary bladder intact Severe osteopenia IMPRESSION: 5 mm pulmonary nodule right upper lobe, 4 mm pulmonary nodule left upper lobe, recommend continued 6 month follow-up CT chest without contrast No interval metastatic disease in the abdomen or pelvis Cholelithiasis
== END | disposition home or self-care (01) ==
PROVIDERS: Referring Provider Internal Medicine Hematology & Oncology; Visit Provider Internal Medicine Hematology & Oncology
DX: R91.8 Other nonspecific abnormal finding of lung field (principal); K80.20 Calculus of gallbladder without cholecystitis without obstruction; C50.411 Malignant neoplasm of upper-outer quadrant of right female breast
CPT/HCPCS: 71260; 74177; A4649; Q9967

== ENCOUNTER → 2025-05-22 | Outpatient (CLI) | payer OTHER, SELFPAY ==
--- NOTE | 2025-05-22 08:30 | XR_ITS ---
Examination: Diagnostic digital mammography, bilateral Computer aided detection 3-D breast Tomosynthesis, bilateral Date and time of exam: June 01, 2025 0814 hours Compared to mammograms dating to 06/29/2015 Technique: Nonmagnified MLO, CC views of the breasts to been obtained, reconstructed from 3-D Tomosynthesis images. R2 computer aided detection program utilized for evaluation of suspicious masses and/or abnormal calcifications. 3-D Tomosynthesis images obtained. Findings: Scattered areas of fibroglandular density Scar formation and surgical clips upper outer right breast consistent with patient's history treated right breast cancer, lumpectomy radiation therapy Grouped microcalcifications upper outer left breast Impression: BI-RADS Category 0: Incomplete: Need additional imaging evaluation Grouped microcalcifications upper outer left breast, recommend follow-up magnification views of these calcifications as well as bilateral breast sonography to complete the workup.
== END | disposition home or self-care (01) ==
LOC: CDIM 08:07
PROVIDERS: PCP Family Medicine; Referring Provider Surgery; Visit Provider Surgery
DX: R92.0 Mammographic microcalcification found on diagnostic imaging of breast (principal); C50.411 Malignant neoplasm of upper-outer quadrant of right female breast
CPT/HCPCS: 77062; 77066; G0279

== ENCOUNTER → 2025-05-24 | Outpatient (CLI) | payer OTHER, SELFPAY ==
--- NOTE | 2025-05-24 10:30 | ECHO_ITS ---
Transthoracic Echo Report Ht (in): 67 Wt (lb): 220 Exam Location: Echo Lab Status: Preadmit Floral Manager: Melany Humphries Indications: Procedure Performed: BP: 160 / 90 HR: 79 MEASUREMENTS (Male / Female) Normal Values 2D ECHO LV Diastolic Diameter PLAX 5.4 cm 4.2 - 5.9 / 3.9 - 5.3 cm LV Systolic Diameter PLAX 3.6 cm IVS Diastolic Thickness 1.1 cm 0.6 - 1.0 / 0.6 - 0.9 cm LVPW Diastolic Thickness 1.7 cm 0.6 - 1.0 / 0.6 - 0.9 cm LV Relative Wall Thickness 0.5 LVOT Diameter 2.2 cm Aortic Root Diameter 3.1 cm LA Volume Index 48.2 cm?/m? 16 - 28 cm?/m? M-MODE AV Cusp Separation MM 2.2 cm DOPPLER AV Peak Velocity 161.0 cm/s AV Peak Gradient 10.4 mmHg AV Mean Gradient 6.0 mmHg AV Velocity Time Integral 33.6 cm LVOT Peak Velocity 141.0 cm/s LVOT Peak Gradient 8.0 mmHg LVOT Velocity Time Integral 37.3 cm LVOT Cardiac Index 5068.2 cm?/min?m? AV Area Cont Eq vti 4.2 cm? AV Area Cont Eq pk 3.3 cm? MV Area PHT 3.2 cm? Mitral E Point Velocity 53.4 cm/s Mitral A Point Velocity 84.9 cm/s Mitral E to A Ratio 0.6 LV E' Lateral Velocity 6.0 cm/s Mitral E to LV E' Lateral Ratio 8.9 LV E' Septal Velocity 8.4 cm/s Mitral E to LV E' Septal Ratio 6.4 TR Peak Velocity 191.0 cm/s TR Peak Gradient 14.6 mmHg PV Peak Velocity 97.9 cm/s PV Peak Gradient 3.8 mmHg FINDINGS Left Ventricle Normal left ventricular size, wall thickness, systolic function with no obvious regional wall motion abnormalities. There is grade I diastolic dysfunction of the left ventricle (impaired relaxation pattern). The ejection fraction is visually estimated at 60 %. Right Ventricle The right ventricle is normal in size and systolic function. The estimated right ventricular systolic pressure, 21 mmHg. Left Atrium The left atrium is normal by two-dimensional, color flow and Doppler imaging with no structural abnormalities, no thrombus formation present. Right Atrium The right atrium is normal by two-dimensional imaging, color flow and Doppler imaging with no structural abnormalities, no thrombus formation present. Atrial Septum The interatrial septum appears normal with no evidence of a shunt. Aorta The aorta is normal by two-dimensional, color flow and Doppler interrogation. Mitral Valve Trace to mild mitral regurgitation. Aortic Valve Mild thickening of the aortic valve leaflets. Tricuspid Valve There is mild to moderate tricuspid valve regurgitation. Pulmonic Valve The pulmonic valve is not well visualized. There is no significant pulmonic valve regurgitation. Vessels The pulmonary artery appears normal. The inferior vena cava pulmonary and hepatic veins appear normal. Pericardium The pericardium is normal by two-dimensional imaging. There is no significant pericardial effusion. CONCLUSIONS Indication Malignant neoplasm of upper-outter quadrant of right female breast Normal left ventricular size and function The ejection fraction is visually estimated at 60 %. Trace mitral and trace tricuspid regurgitation noted. aortic valve sclerosis with stenosis Jyoti Car (Electronically Signed) Final Date: 24 May 2025 18:00
== END | disposition home or self-care (01) ==
LOC: SDIM 10:03
PROVIDERS: PCP Family Medicine; Referring Provider Internal Medicine Hematology & Oncology; Visit Provider Internal Medicine Hematology & Oncology
DX: I08.3 Combined rheumatic disorders of mitral, aortic and tricuspid valves (principal); I35.0 Nonrheumatic aortic (valve) stenosis; C50.411 Malignant neoplasm of upper-outer quadrant of right female breast
CPT/HCPCS: 93306

== ENCOUNTER 2025-06-02 07:22 | Outpatient (RCR) | payer OTHER, SELFPAY ==
[2025-05-26 14:14] LABS: Basophils # (Auto) 0.0 Thou/mm3 (0.0-0.2); Basophils % (Auto) 1 % (0-2.5); Eosinophils # (Auto) 0.2 Thou/mm3 (0.0-0.5); Eosinophils % (Auto) 3 % (0-10); Hematocrit 33.9 % (36.0-46.0); Hemoglobin 11.2 g/dL (12.0-16.0); Immature Granulocytes Auto 0.02 Thou/mm3 (0.00-0.00); Lymphocytes # (Auto) 2.1 Thou/mm3 (1.0-4.8); Lymphocytes % (Auto) 26 % (10-50); Mean Corpuscular HGB Conc 33.0 g/dl (31.0-37.0); Mean Corpuscular Hemoglobin 29.9 pg (25.0-35.0); Mean Corpuscular Volume 91 fL (80-100); Monocytes # (Auto) 0.6 Thou/mm3 (0.0-0.8); Monocytes % (Auto) 7 % (0-12); Neutrophils # (Auto) 5.2 Thou/mm3 (1.8-7.7); Neutrophils % (Auto) 63 % (37-80); Nucleated Red Blood Cell # 0.00 Thou/mm3 (0.00-0.00); Nucleated Red Blood Cell % 0 /100 WBC (0); Platelet Count 209 Thou/mm3 (140-440); RDW Standard Deviation 49.2 fL (36.4-46.3); Red Blood Count 3.74 Miln/mm3 (4.00-5.20); White Blood Count 8.2 Thou/mm3 (3.6-11.0)
[2025-05-26 14:51] LABS: Alanine Aminotransferase 9 U/L (10-49); Albumin, Serum 3.9 gm/dL (3.4-4.8); Albumin/Globulin Ratio 1.8 (1.2-2.2); Alkaline Phosphatase 77 U/L (46-116); Anion Gap 6 (7-16); Aspartate Amino Transferase 12 U/L (0-34); BUN/Creatinine Ratio 28 Ratio (12-20); Bilirubin,Total 0.3 mg/dL (0.3-1.2); Blood Urea Nitrogen 17 mg/dL (9-23); Calcium 9.9 mg/dL (8.3-10.6); Calcium (Corrected) 10.0 mg/dL (8.5-10.1); Carbon Dioxide 27.2 mMol/L (20.0-31.0); Chloride 107 mMol/L (98-107); Creatinine (Component) 0.6 mg/dL (0.6-1.3); Globulin 2.2 gm/dL (2.3-3.5); Glucose 116 mg/dL (74-106); Osmolality,Calculated 281 (275-295); Potassium 4.3 mMol/L (3.4-5.1); Sodium 140 mMol/L (136-145); Total Protein 6.1 gm/dL (5.7-8.2); eGFR > 60 See Note
--- NOTE | 2025-05-27 10:49 | CTCFLWUP_ITS ---
Patient: VERA CORREIA : 1960 Page 8 of 10 FOLLOW UP NOTE DATE OF SERVICE: 05/27/2025 NAME: VERA CORREIA ACCOUNT: [id number] : 1960 AGE: 64 INTERVAL HISTORY: Patient is on HP and treated with prednisone . patient doing better now . 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 She reports doing fantastic overall after starting on steroids. Patient's pain have decreased. Patient is starting to gain weight because her appetite is better with the steroids. Patient will be watching her diet better now. Regarding her cancer treatment, the patient has completed chemotherapy and is continuing Herceptin and Perjeta. She denies any side effects from these medications. She is adherent to her current treatment regimen and appears to be progressing well in her cancer care. Medications and Supplements - Perjeta - Completed 2 weeks ago - Herceptin - Continuing treatment - Steroids - Discontinued - Caused horrible side effects when stopping - Arimidex - One tablet daily - Can be taken in the morning or at bedtime - May cause hot flashes and worsen arthralgia - Premier protein supplements - Discontinued after chemotherapy Review of Systems General: Positive for weight loss. Skin: Positive for dry skin on hands. Musculoskeletal: Positive for joint pain, swelling in feet, knees, and knuckles. Positive for difficulty making fists, cutting meat, and straightening hands. Gastrointestinal: Positive for feeling full quickly, decreased appetite. Objective: Physical Examination Patient is alert oriented x 4 Breathing is good at room air Move all extremities Swelling in hands and feet are minimal Able to stand and walk well Move congruent to the situation Skin no rash Laboratory, Imaging, and Diagnostic Test Results - Echocardiogram (January 2025): - Normal heart function - Mild regurgitation - No stenosis ONCOLOGY HISTORY:?[facility] Oncology Hx? 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 S/p lumpectomy and sentinel lymph node biopsy on 06/30/2024. Mammographically detected ER positive, IA positive, HER2/naomi positive (IHC 3+), grade invasive ductal carcinoma of the right breast, status post needle core biopsy (05/14/2024) Patient is BRCA 1and2 negative. Strong family history of breast cancer (patient's sister, mother, grandmother and great-grandmother had breast cancers DATE OF DIAGNOSIS: 06/30/2024 STAGE/TNM: Stage II(pT1c, pN1a, M0), ER positive, IA positive, HER2/naomi overexpressed, high-grade invasive ductal carcinoma of the right breast with lymphovascular invasion. S/p lumpectomy and sentinel lymph node biopsy on 06/30/2024. TREATMENT HISTORY: Care?Plan Start?Date Cycle Day Intent TCH?Perjeta?adjuvant 08/03/2024 1 21 Curative?(adjuvant) HISTORY OF PRESENT ILLNESS: Vera Correia is a 64-year-old ENG speaking female with following oncology history. 02/22/2024: Ms. Correia had bilateral diagnostic digital mammograms 03/31/2024: Ms. Correia had right breast diagnostic mammogram and ultrasound 04/23/2024: BRCA 1and2 negative 05/14/2024: Ms. 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 Tobacco?Use?Years:?45 Tobacco Use:?Smoked off/on x 45 yrs - 1 PPD at most - now 2 cig/day ETOH?Use:?Socially Drug?Note:?Denies Social?History?Note:?Lives?with? HEALTH TECHNICIAN HEARING HISTORY: Menarche?-?Age:?10 Menopause:?51 Hormone?Use:?None :?0 Live?Births:?0 MEDICATIONS: 1. Arimidex - 1 mg 1 tab Daily 2. atorvastatin - 40 mg 1 tab Daily 3. CeleBREX - 100 mg 1 Capsule Twice a Day 4. Emend - 125 mg 5. Flexeril - 10 mg 1 tab Daily 6. Imodium A-D - 2 mg 2 mg daily as directed 7. Lexapro - 10 mg 1 tab Daily 8. montelukast - 10 mg 1 tab Daily 9. oxyBUTYnin chloride - 15 mg 1 tab Daily 10. prednisone - 5 mg 1 tab twice Daily with food 11. Wellbutrin XL - 150 mg 1 tab Daily?Palabra Meds? Medications Last Reconciled by Yeny Perez MD on 05/27/2025 ALLERGIES: No Known Drug Allergies REVIEW OF SYSTEMS: A complete 14-point review of systems was performed and is negative except as noted in interval history. PHYSICAL EXAMINATION: As documented above?[facility]oneBlock PE? VITAL SIGNS: Temperature?97.4, B/P?145/89, Oxygen?Saturation?97% Weight?228?lbs (Change?since?05/26/25:?0.8?lbs) PAIN: 4 - Moderate pain ECOG Performance Status: 1 - Symptomatic; ambulatory; restricted in strenuous activity GENERAL APPEARANCE: Appears well, in no apparent distress, appropriately interactive. Physical Examination Patient is alert oriented x 4 Breathing is good at room air Move all extremities Swelling in hands and feet are minimal Able to stand and walk well Move congruent to the situation Skin no rash PULMONARY: Normal respiratory effort, no respiratory distress or use of accessory muscles, speaking in full sentences, no tachypnea. EXTREMITIES: No pedal edema or cyanosis. As per interval history SKIN: Normal skin appearance. NEUROLOGIC: Alert and oriented x4. PSHYCHIATRIC: Appropriate affect, mood normal, behavior normal, intact thought and speech. LABORATORY DATA: I have personally reviewed and interpreted each of the patient?s relevant lab tests, abnormal findings are below: Date 05/11/25 05/26/25 ??WHITE?BLOOD?COUNT?(Thou/mm3) 8.6 8.2 ??RED?BLOOD?COUNT?(Miln/mm3) 3.72?L 3.74?L ??HEMOGLOBIN?(gm/dl) 11.0?L 11.2?L ??HEMATOCRIT?(%) 33.4?L 33.9?L ??PLATELET?COUNT?(Thou/mm3) 282 209 ??NEUTROPHILS?%,?AUTO?(%) 75 63 ??LYMPH?%,?AUTO?(%) 15 26 ??NEUTROPHILS,?AUTO?(Thou/mm3) 6.4 5.2 ??GLUCOSE,RANDOM?(mg/dL) 83 116?H ??BLOOD?UREA?NITROGEN?(mg/dL) 14 17 ??CREATININE?(mg/dL) 0.60 0.60 ??SODIUM?(mmol/L) 141 140 ??POTASSIUM?(mmol/L) 3.8 4.3 ??CHLORIDE?(mmol/L) 106 107 ??CrCl?(CandG)?(ml/min) 113.46 114.72 ??AST/SGOT?(Unit/L) 13 12 ??ALT/SGPT?(Unit/L) 12 9?L ??ALKALINE?PHOSPHATASE?(Unit/L) 80 77 ??BILIRUBIN,?TOTAL?(mg/dL) 0.2?L 0.3 ??PROTEIN?TOTAL?(gm/dl) 6.5 6.1 ??ALBUMIN,?SERUM?(gm/dl) 3.9 3.9 ??GLOBULIN?(gm/dl) 2.6 2.2?L ??ALBUMIN/GLOBULIN?RATIO 1.5 1.8 ??CALCIUM,?SERUM?(mg/dL) 10.1 9.9 ??CALCIUM?SERUM?(CORRECTED)?(mg/dL) 10.2?H 10.0 ASSESSMENT/PLAN:?Chance Abarca Assessment/Plan? Vera Miguel, 64-year-old female with stage 2 high-grade breast cancer, completed Perjeta 2 weeks ago, presenting with joint pain and swelling. Breast Cancer Assessment: Stage 2 high-grade breast cancer, ER/IA positive. Patient completed chemotherapy including Perjeta 2 weeks ago. Scheduled to continue Herceptin and Perjeta. Recent echocardiogram in January showed mild regurgitation without stenosis. Left ventricular function remains good. Patient reports continued weight loss post-chemotherapy. 1. Stage IIa (pT1c, pN1a, M0), ER positive, IA positive, HER2/naomi overexpressed, high-grade invasive ductal carcinoma of the right breast with lymphovascular invasion. S/p lumpectomy and sentinel lymph node biopsy on 06/30/2024. On chemotherapy with TCH and Perjeta since July 2024 mammographically detected ER positive, IA positive, HER2/naomi positive (IHC 3+), grade invasive ductal carcinoma of the right breast, status post needle core biopsy (05/14/2024). Mammogram showed the mass to be 10 mm in size Strong family history of breast cancers (patient's sister, mother, grandmother as well as great-grandmother had breast cancers) Ms. Correia is BRCA 1 and 2 negative Completed adjuvant radiation Echo stable we need to Plan: - Continue Herceptin and Perjeta as scheduled - Start Arimidex 1 tablet PO daily (patient's choice of morning or bedtime) - Order Cheri test for monitoring every 3 months - Annual PET scan -- Encourage increased water intake, especially during summer - Recommend natural fruit-infused water for hydration - Encourage maintaining low body fat content - Follow-up appointment in June Polyarthralgia Assessment: At last visit patient was started on prednisone 5 mg twice daily patient is now doing better Swelling have decreased plan: Continue prednisone for now with food Follow-up with rheumatology RTC in 2 months to see his tolerance to Arimidex and to see rheumatology recommendation Continue Herceptin and Perjeta Take calcium and vitamin D daily Will start on Zometa once dental clearance is completed ORDERS: Order # Description [id number] Follow Up Appointment [id number] CBC + Comprehensive Metabolic Panel [id number] Lab Appointment [id number] Follow Up Appointment [id number] Cardiac ECHO [id number] CBC + Comprehensive Metabolic Panel [id number] Lab Appointment [id number] Follow Up Appointment [id number] Lab Appointment [id number] CBC + Comprehensive Metabolic Panel [id number] Follow Up Appointment [id number] Lab Appointment [id number] CBC + Comprehensive Metabolic Panel RETURN TO CLINIC: I reviewed the diagnosis, prognosis, and recommended treatment/procedure options with the patient (and/or their legal airline security representative), including the potential benefits, risks, side effects and alternative therapies. We also discussed the option of no treatment and the possibility of clinical trial participation, if applicable. All questions were addressed, and they demonstrated understanding. They provided informed consent to proceed with the proposed plan of care. BILLING AND COMPLIANCE: I reviewed external records from providers outside my specialty as summarized above. I spent a total of 50 minutes on this patient?s care on the day of their visit excluding time spent related to any billed procedures. This time includes time spent with the patient as well as time spent documenting in the medical record, reviewing patients records and tests, obtaining history, placing orders, communicating with other healthcare professionals, counseling the patient, family or caregiver, and/or care coordination for the diagnoses above. Electronically Signed by: Kareem Abarca MD T: 10:47 AM CC: Ashly? PCP: Kelle Sarabia Referring: Kelle Sarabia This document was completed utilizing speech recognition software. Grammatical errors, random word insertions, pronoun errors, and incomplete sentences are an occasional consequence of this system due to software limitations, ambient noise, and hardware issues. Any formal questions or concerns about the content, text or information contained within the body of this dictation should be directly addressed to the provider for clarification.
[2025-06-01 09:48] LABS: Basophils # (Auto) 0.0 Thou/mm3 (0.0-0.2); Basophils % (Auto) 0 % (0-2.5); Eosinophils # (Auto) 0.2 Thou/mm3 (0.0-0.5); Eosinophils % (Auto) 2 % (0-10); Hematocrit 34.0 % (36.0-46.0); Hemoglobin 11.1 g/dL (12.0-16.0); Immature Granulocytes Auto 0.03 Thou/mm3 (0.00-0.00); Lymphocytes # (Auto) 1.4 Thou/mm3 (1.0-4.8); Lymphocytes % (Auto) 15 % (10-50); Mean Corpuscular HGB Conc 32.6 g/dl (31.0-37.0); Mean Corpuscular Hemoglobin 29.9 pg (25.0-35.0); Mean Corpuscular Volume 92 fL (80-100); Monocytes # (Auto) 0.6 Thou/mm3 (0.0-0.8); Monocytes % (Auto) 6 % (0-12); Neutrophils # (Auto) 7.2 Thou/mm3 (1.8-7.7); Neutrophils % (Auto) 76 % (37-80); Nucleated Red Blood Cell # 0.00 Thou/mm3 (0.00-0.00); Nucleated Red Blood Cell % 0 /100 WBC (0); Platelet Count 209 Thou/mm3 (140-440); RDW Standard Deviation 50.1 fL (36.4-46.3); Red Blood Count 3.71 Miln/mm3 (4.00-5.20); White Blood Count 9.5 Thou/mm3 (3.6-11.0)
[2025-06-01 10:19] LABS: Alanine Aminotransferase 10 U/L (10-49); Albumin, Serum 3.9 gm/dL (3.4-4.8); Albumin/Globulin Ratio 1.7 (1.2-2.2); Alkaline Phosphatase 75 U/L (46-116); Anion Gap 7 (7-16); Aspartate Amino Transferase 18 U/L (0-34); BUN/Creatinine Ratio 28 Ratio (12-20); Bilirubin,Total 0.3 mg/dL (0.3-1.2); Blood Urea Nitrogen 17 mg/dL (9-23); Calcium 10.5 mg/dL (8.3-10.6); Calcium (Corrected) 10.6 mg/dL (8.5-10.1); Carbon Dioxide 24.9 mMol/L (20.0-31.0); Chloride 107 mMol/L (98-107); Creatinine (Component) 0.6 mg/dL (0.6-1.3); Globulin 2.3 gm/dL (2.3-3.5); Glucose 81 mg/dL (74-106); Osmolality,Calculated 278 (275-295); Potassium 4.0 mMol/L (3.4-5.1); Sodium 139 mMol/L (136-145); Total Protein 6.2 gm/dL (5.7-8.2); eGFR > 60 See Note
== END 2025-06-14 23:59 | disposition home or self-care (01) ==
LOC: SCTC 07:22
PROVIDERS: PCP Family Medicine; Referring Provider Family Medicine; Visit Provider Internal Medicine Hematology & Oncology
DX: Z51.11 Encounter for antineoplastic chemotherapy (principal); C50.411 Malignant neoplasm of upper-outer quadrant of right female breast; Z17.0 Estrogen receptor positive status [ER+]; Z17.21 Progesterone receptor positive status; Z17.32 Human epidermal growth factor receptor 2 negative status; Z90.11 Acquired absence of right breast and nipple; Z80.3 Family history of malignant neoplasm of breast; Z92.3 Personal history of irradiation; Z79.811 Long term (current) use of aromatase inhibitors; M25.50 Pain in unspecified joint
CPT/HCPCS: 36591; 80053; 85025; 96413; 96417; 99212; A4216; J1642; J7040; J7050; J9306; Q5117; G0463

== ENCOUNTER → 2025-06-29 | Outpatient (CLI) | payer OTHER, SELFPAY ==
[2025-06-29 09:32] LABS: Misc Send Out* See Sep Rpt
[2025-06-29 10:51] LABS: Basophils # (Auto) 0.1 Thou/mm3 (0.0-0.2); Basophils % (Auto) 1 % (0-2.5); Eosinophils # (Auto) 0.2 Thou/mm3 (0.0-0.5); Eosinophils % (Auto) 2 % (0-10); Hematocrit 34.1 % (36.0-46.0); Hemoglobin 11.5 g/dL (12.0-16.0); Immature Granulocytes Auto 0.02 Thou/mm3 (0.00-0.00); Lymphocytes # (Auto) 1.8 Thou/mm3 (1.0-4.8); Lymphocytes % (Auto) 25 % (10-50); Mean Corpuscular HGB Conc 33.7 g/dl (31.0-37.0); Mean Corpuscular Hemoglobin 30.3 pg (25.0-35.0); Mean Corpuscular Volume 90 fL (80-100); Monocytes # (Auto) 0.6 Thou/mm3 (0.0-0.8); Monocytes % (Auto) 8 % (0-12); Neutrophils # (Auto) 4.7 Thou/mm3 (1.8-7.7); Neutrophils % (Auto) 64 % (37-80); Nucleated Red Blood Cell # 0.00 Thou/mm3 (0.00-0.00); Nucleated Red Blood Cell % 0 /100 WBC (0); Platelet Count 271 Thou/mm3 (140-440); RDW Standard Deviation 45.3 fL (36.4-46.3); Red Blood Count 3.79 Miln/mm3 (4.00-5.20); White Blood Count 7.4 Thou/mm3 (3.6-11.0)
[2025-06-29 11:02] LABS: Parathyroid Hormone Intact 78.8 pg/ml (18.5-88.0)
[2025-06-29 11:18] LABS: Alanine Aminotransferase 14 U/L (10-49); Albumin, Serum 4.3 gm/dL (3.4-4.8); Albumin/Globulin Ratio 1.7 (1.2-2.2); Alkaline Phosphatase 72 U/L (46-116); Anion Gap 7 (7-16); Aspartate Amino Transferase 15 U/L (0-34); BUN/Creatinine Ratio 27 Ratio (12-20); Bilirubin,Total 0.2 mg/dL (0.3-1.2); Blood Urea Nitrogen 16 mg/dL (9-23); C-Reactive Protein < 0.5 mg/dL (0.0-0.9); Calcium 10.7 mg/dL (8.3-10.6); Calcium (Corrected) 10.7 mg/dL (8.5-10.1); Carbon Dioxide 27.9 mMol/L (20.0-31.0); Chloride 103 mMol/L (98-107); Creatinine (Component) 0.6 mg/dL (0.6-1.3); Free T4 (Free Thyroxine) 1.23 ng/dL (0.89-1.76); Globulin 2.5 gm/dL (2.3-3.5); Glucose 93 mg/dL (74-106); Osmolality,Calculated 276 (275-295); Potassium 4.0 mMol/L (3.4-5.1); Sodium 138 mMol/L (136-145); Thyroid Stimulating Hormone 1.81 uIU/mL (0.55-4.78); Total Protein 6.8 gm/dL (5.7-8.2); Uric Acid 2.7 mg/dL (3.1-7.8); eGFR > 60 See Note
[2025-06-29 11:36] LABS: Sed Rate (ESR) 44 mm/hr (0-30)
[2025-06-29 14:27] LABS: Cocci Serology, IgM Negative (Negative)
[2025-06-30 10:50] LABS: Cocci Serology, IgG Negative (Negative)
[2025-07-03 17:52] LABS: Cardiolipin Ab (IgA) <2.0 APL-U/mL; Cardiolipin Ab (IgG) <2.0 GPL-U/mL; Sjogren's antibody (SS-A) <1.0 NEG AI (<1.0 NEGATIVE); Sm Antibody <1.0 NEG AI (<1.0 NEGATIVE)
[2025-07-06 09:14] LABS: B2-Glycoprotein I Ab IgA <2.0 U/mL; B2-Glycoprotein I Ab IgG <2.0 U/mL; B2-Glycoprotein I Ab IgM 7.1 U/mL; CCP Antibody (IgG)* 47 Units; Cardiolipin Ab (IgM) 6.9 MPL-U/mL; Complement Component C3* 164 mg/dL (83-193); Complement Component C4c* 26 mg/dL (15-57); DNA (ds) Antibody* <1 IU/mL; Scl-70 Antibody* <1.0 NEG AI (<1.0 NEGATIVE); Sjogren's Antibody (SS-B) <1.0 NEG AI (<1.0 NEGATIVE); Sm/RNP Antibody <1.0 NEG AI (<1.0 NEGATIVE); Thyroid Peroxidase Antibodies* <1 IU/mL (<9)
== END | disposition home or self-care (01) ==
LOC: COPL 08:54
PROVIDERS: PCP Family Medicine; Referring Provider Nurse Practitioner Family; Visit Provider Nurse Practitioner Family
DX: E78.49 Other hyperlipidemia (principal); F32.A Depression, unspecified; M25.561 Pain in right knee; M25.562 Pain in left knee; R76.8 Other specified abnormal immunological findings in serum; Z13.820 Encounter for screening for osteoporosis; Z78.0 Asymptomatic menopausal state; Z85.3 Personal history of malignant neoplasm of breast
CPT/HCPCS: 36415; 80053; 83970; 84439; 84443; 84550; 85025; 85652; 86140; 86146; 86147; 86160; 86200; 86225; 86235; 86331; 86376; 86635; 86880

== ENCOUNTER → 2025-07-09 | Outpatient (CLI) | payer OTHER, SELFPAY ==
--- NOTE | 2025-07-09 10:15 | XR_ITS ---
Examination: Breast ultrasound complete, bilateral Date and time of exam: July 09, 2025, 1020 hours INDICATIONS: Right breast pain post lumpectomy and radiation therapy one year ago, strong family history breast cancer Technique: Real-time grayscale ultrasonographic imaging bilateral breasts, including all 4 quadrants as well as nipple retroareolar and axillary regions. Findings: 9:00 cyst 15 x 12 mm 9:00 cyst 4 x 3 mm No solid nodules Right breast edema IMPRESSION: BI-RADS Category 2: Benign findings
--- NOTE | 2025-07-09 11:15 | XR_ITS ---
Examination: Diagnostic digital mammography, unilateral, left Computer aided detection 3-D breast Tomosynthesis, unilateral Date and time of exam: July 09, 2025 1040 hours INDICATIONS: Mammogram May 22, 2025 grouped microcalcifications upper outer left breast Technique: Nonmagnified MLO, CC views of the left breast have been obtained, reconstructed from 3-D Tomosynthesis images. R2 computer aided detection program utilized for evaluation of suspicious masses and/or abnormal calcifications. 3-D Tomosynthesis images obtained. Findings: Scattered areas of fibroglandular density. Grouped microcalcifications are confirmed upper outer left breast probably benign calcifications outer left breast IMPRESSION: BI-RADS Category 3: Probably benign findings One additional 6 month left mammogram follow-up is needed
== END | disposition home or self-care (01) ==
PROVIDERS: PCP Family Medicine; Referring Provider Surgery; Visit Provider Surgery
DX: R92.332 Mammographic heterogeneous density, left breast (principal); R92.1 Mammographic calcification found on diagnostic imaging of breast; Z80.3 Family history of malignant neoplasm of breast
CPT/HCPCS: 76641; 77061; 77065; G0279

== ENCOUNTER 2025-07-14 07:25 | Outpatient (RCR) | payer OTHER, SELFPAY ==
[2025-06-22 09:13] LABS: Basophils # (Auto) 0.0 Thou/mm3 (0.0-0.2); Basophils % (Auto) 0 % (0-2.5); Eosinophils # (Auto) 0.2 Thou/mm3 (0.0-0.5); Eosinophils % (Auto) 3 % (0-10); Hematocrit 32.4 % (36.0-46.0); Hemoglobin 10.7 g/dL (12.0-16.0); Immature Granulocytes Auto 0.03 Thou/mm3 (0.00-0.00); Lymphocytes # (Auto) 1.2 Thou/mm3 (1.0-4.8); Lymphocytes % (Auto) 16 % (10-50); Mean Corpuscular HGB Conc 33.0 g/dl (31.0-37.0); Mean Corpuscular Hemoglobin 30.1 pg (25.0-35.0); Mean Corpuscular Volume 91 fL (80-100); Monocytes # (Auto) 0.7 Thou/mm3 (0.0-0.8); Monocytes % (Auto) 10 % (0-12); Neutrophils # (Auto) 5.2 Thou/mm3 (1.8-7.7); Neutrophils % (Auto) 70 % (37-80); Nucleated Red Blood Cell # 0.00 Thou/mm3 (0.00-0.00); Nucleated Red Blood Cell % 0 /100 WBC (0); Platelet Count 215 Thou/mm3 (140-440); RDW Standard Deviation 47.9 fL (36.4-46.3); Red Blood Count 3.55 Miln/mm3 (4.00-5.20); White Blood Count 7.4 Thou/mm3 (3.6-11.0)
[2025-06-22 09:40] LABS: Alanine Aminotransferase 13 U/L (10-49); Albumin, Serum 3.8 gm/dL (3.4-4.8); Albumin/Globulin Ratio 1.7 (1.2-2.2); Alkaline Phosphatase 71 U/L (46-116); Anion Gap 8 (7-16); Aspartate Amino Transferase 17 U/L (0-34); BUN/Creatinine Ratio 24 Ratio (12-20); Bilirubin,Total 0.3 mg/dL (0.3-1.2); Blood Urea Nitrogen 12 mg/dL (9-23); Calcium 10.3 mg/dL (8.3-10.6); Calcium (Corrected) 10.5 mg/dL (8.5-10.1); Carbon Dioxide 26.9 mMol/L (20.0-31.0); Chloride 107 mMol/L (98-107); Creatinine (Component) 0.5 mg/dL (0.6-1.3); Globulin 2.2 gm/dL (2.3-3.5); Glucose 100 mg/dL (74-106); Osmolality,Calculated 282 (275-295); Potassium 4.1 mMol/L (3.4-5.1); Sodium 142 mMol/L (136-145); Total Protein 6.0 gm/dL (5.7-8.2); eGFR > 60 See Note
[2025-07-14 08:16] LABS: Basophils # (Auto) 0.1 Thou/mm3 (0.0-0.2); Basophils % (Auto) 1 % (0-2.5); Eosinophils # (Auto) 0.2 Thou/mm3 (0.0-0.5); Eosinophils % (Auto) 2 % (0-10); Hematocrit 32.1 % (36.0-46.0); Hemoglobin 10.6 g/dL (12.0-16.0); Immature Granulocytes Auto 0.03 Thou/mm3 (0.00-0.00); Lymphocytes # (Auto) 1.9 Thou/mm3 (1.0-4.8); Lymphocytes % (Auto) 22 % (10-50); Mean Corpuscular HGB Conc 33.0 g/dl (31.0-37.0); Mean Corpuscular Hemoglobin 29.8 pg (25.0-35.0); Mean Corpuscular Volume 90 fL (80-100); Monocytes # (Auto) 0.7 Thou/mm3 (0.0-0.8); Monocytes % (Auto) 8 % (0-12); Neutrophils # (Auto) 5.7 Thou/mm3 (1.8-7.7); Neutrophils % (Auto) 67 % (37-80); Nucleated Red Blood Cell # 0.00 Thou/mm3 (0.00-0.00); Nucleated Red Blood Cell % 0 /100 WBC (0); Platelet Count 216 Thou/mm3 (140-440); RDW Standard Deviation 46.0 fL (36.4-46.3); Red Blood Count 3.56 Miln/mm3 (4.00-5.20); White Blood Count 8.5 Thou/mm3 (3.6-11.0)
[2025-07-14 08:32] LABS: Alanine Aminotransferase 13 U/L (10-49); Albumin, Serum 3.7 gm/dL (3.4-4.8); Albumin/Globulin Ratio 1.7 (1.2-2.2); Alkaline Phosphatase 65 U/L (46-116); Anion Gap 4 (7-16); Aspartate Amino Transferase 13 U/L (0-34); BUN/Creatinine Ratio 30 Ratio (12-20); Bilirubin,Total 0.3 mg/dL (0.3-1.2); Blood Urea Nitrogen 18 mg/dL (9-23); Calcium 10.2 mg/dL (8.3-10.6); Calcium (Corrected) 10.4 mg/dL (8.5-10.1); Carbon Dioxide 28.2 mMol/L (20.0-31.0); Chloride 107 mMol/L (98-107); Creatinine (Component) 0.6 mg/dL (0.6-1.3); Globulin 2.2 gm/dL (2.3-3.5); Glucose 100 mg/dL (74-106); Osmolality,Calculated 279 (275-295); Potassium 4.2 mMol/L (3.4-5.1); Sodium 139 mMol/L (136-145); Total Protein 5.9 gm/dL (5.7-8.2); eGFR > 60 See Note
== END 2025-07-14 23:59 | disposition home or self-care (01) ==
LOC: SCTC 07:25
PROVIDERS: PCP Family Medicine; Referring Provider Family Medicine; Visit Provider Internal Medicine Hematology & Oncology
DX: Z51.11 Encounter for antineoplastic chemotherapy (principal); C50.411 Malignant neoplasm of upper-outer quadrant of right female breast; Z17.0 Estrogen receptor positive status [ER+]; Z17.21 Progesterone receptor positive status; Z17.31 Human epidermal growth factor receptor 2 positive status; Z92.3 Personal history of irradiation; M25.50 Pain in unspecified joint; Z79.811 Long term (current) use of aromatase inhibitors
CPT/HCPCS: 36591; 80053; 85025; 96413; 96417; A4216; J1642; J7040; J7050; J9306; Q5117

== ENCOUNTER → 2025-07-27 | Outpatient (CLI) | payer OTHER, SELFPAY ==
--- NOTE | 2025-07-27 14:15 | XR_ITS ---
Examination: MRI of brain without intravenous contrast. MRI brain with intravenous contrast. Date and time of exam: July 27, 2025, 1429 hours INDICATIONS: Diagnosis malignant neoplasm of upper-outer quadrant of right female breast, patient states numbness in the hands and feet after chemotherapy Technique: Multiple axial and sagittal images of the brain to been obtained. Siemens high-resolution 1.52 Deidra short bore scanner utilized. Sagittal sections, T1 weighted images, TR 500, TE 14, are performed. Axial sections proton-density and T2-weighted images have been obtained. Inversion recovery axial images, TR 9260, TE 111, TR 2500. Diffusion weighted images, axial sections, TR 4800, TE 128, B value 1000. Axial sections, ADC map, TR 4800, TE 128. Axial and coronal images were also obtained post 20 cc gadolinium administered intravenously. Findings:: Enlargement of the sella turcica is not present. The optic chiasm and infundibular stalk are not remarkable. There is no localized enlargement of the medulla or kodi. Fourth ventricle and cerebellar tonsils appear normal in position. No subacute area of hemorrhage density is seen. Fourth ventricle is midline. Mass in the cerebellopontine angle region is not evident. 7th and 8th nerve complexes exhibit symmetry Globes are symmetrical Orbital musculature including medial lateral rectus muscles do not exhibit abnormality Increased white matter signal is moderate Effacement of the cortical sulcal markings is not identified. Mass effect upon the ventricular system is not identified. Diffusion-weighted images demonstrate no focus of restricted diffusion Chronic ethmoid sinusitis And right mastoiditis Contrast images demonstrate no abnormal enhancing cerebellar or cerebral lesions Impression: Negative for acute hemorrhage, mass effect or midline shift No acute infarct. Moderate chronic microvascular white matter change No abnormal enhancing cerebellar or cerebral lesions Right mastoiditis
== END | disposition home or self-care (01) ==
PROVIDERS: PCP Family Medicine; Referring Provider Internal Medicine Hematology & Oncology; Visit Provider Internal Medicine Hematology & Oncology
DX: R90.82 White matter disease, unspecified (principal); C50.411 Malignant neoplasm of upper-outer quadrant of right female breast
CPT/HCPCS: 70553; A9577

== ENCOUNTER 2025-08-04 13:19 | Outpatient (RCR) | payer OTHER, SELFPAY ==
[2025-07-28 14:44] LABS: Basophils # (Auto) 0.1 Thou/mm3 (0.0-0.2); Basophils % (Auto) 1 % (0-2.5); Eosinophils # (Auto) 0.2 Thou/mm3 (0.0-0.5); Eosinophils % (Auto) 1 % (0-10); Hematocrit 33.6 % (36.0-46.0); Hemoglobin 11.3 g/dL (12.0-16.0); Immature Granulocytes Auto 0.04 Thou/mm3 (0.00-0.00); Lymphocytes # (Auto) 1.4 Thou/mm3 (1.0-4.8); Lymphocytes % (Auto) 12 % (10-50); Mean Corpuscular HGB Conc 33.6 g/dl (31.0-37.0); Mean Corpuscular Hemoglobin 30.3 pg (25.0-35.0); Mean Corpuscular Volume 90 fL (80-100); Monocytes # (Auto) 0.7 Thou/mm3 (0.0-0.8); Monocytes % (Auto) 6 % (0-12); Neutrophils # (Auto) 9.5 Thou/mm3 (1.8-7.7); Neutrophils % (Auto) 80 % (37-80); Nucleated Red Blood Cell # 0.00 Thou/mm3 (0.00-0.00); Nucleated Red Blood Cell % 0 /100 WBC (0); Platelet Count 241 Thou/mm3 (140-440); RDW Standard Deviation 46.3 fL (36.4-46.3); Red Blood Count 3.73 Miln/mm3 (4.00-5.20); White Blood Count 11.8 Thou/mm3 (3.6-11.0)
[2025-07-28 15:10] LABS: Alanine Aminotransferase 19 U/L (10-49); Albumin, Serum 4.0 gm/dL (3.4-4.8); Albumin/Globulin Ratio 1.7 (1.2-2.2); Alkaline Phosphatase 66 U/L (46-116); Anion Gap 7 (7-16); Aspartate Amino Transferase 19 U/L (0-34); BUN/Creatinine Ratio 23 Ratio (12-20); Bilirubin,Total 0.3 mg/dL (0.3-1.2); Blood Urea Nitrogen 14 mg/dL (9-23); Calcium 10.1 mg/dL (8.3-10.6); Calcium (Corrected) 10.1 mg/dL (8.5-10.1); Carbon Dioxide 27.3 mMol/L (20.0-31.0); Chloride 107 mMol/L (98-107); Creatinine (Component) 0.6 mg/dL (0.6-1.3); Globulin 2.4 gm/dL (2.3-3.5); Glucose 86 mg/dL (74-106); Osmolality,Calculated 280 (275-295); Potassium 4.1 mMol/L (3.4-5.1); Sodium 141 mMol/L (136-145); Total Protein 6.4 gm/dL (5.7-8.2); eGFR > 60 See Note
--- NOTE | 2025-07-29 15:58 | CTCFLWUP_ITS ---
Patient: VERA CORREIA : 1960 Page 8 of 10 FOLLOW UP NOTE DATE OF SERVICE: 07/29/2025 NAME: VERA CORREIA ACCOUNT: [id number] : 1960 AGE: 64 INTERVAL HISTORY: Patient is on Herceptin Perjeta and anastrozole for her triple positive breast cancer. Patient is on her last treatment for her Herceptin and Perjeta. So far patient has tolerated treatment very well. Patient's last scan was negative. There was a concern for small lung nodules for which patient is due for her next CT scan in August. Otherwise patient is doing well. She is also following with community service worker for her arthritis and is on methotrexate. Patient is still bridging with the prednisone to methotrexate Medications and Supplements - Perjeta - Completed 2 weeks ago - Herceptin - Continuing treatment - Steroids - Discontinued - Caused horrible side effects when stopping - Arimidex - One tablet daily - Can be taken in the morning or at bedtime - May cause hot flashes and worsen arthralgia - Premier protein supplements - Discontinued after chemotherapy Review of Systems General: Positive for weight loss. Skin: Positive for dry skin on hands. Musculoskeletal: Positive for joint pain, swelling in feet, knees, and knuckles. Positive for difficulty making fists, cutting meat, and straightening hands. Gastrointestinal: Positive for feeling full quickly, decreased appetite. Objective: Physical Examination Patient is alert oriented x 4 Breathing is good at room air Move all extremities Swelling in hands and feet are minimal Able to stand and walk well Move congruent to the situation Skin no rash Laboratory, Imaging, and Diagnostic Test Results - Echocardiogram (January 2025): - Normal heart function - Mild regurgitation - No stenosis ONCOLOGY HISTORY: DIAGNOSIS: Malignant neoplasm of upper-outer quadrant of right female breast [ICD10] C50.411 Stage IIa (pT1c, pN1a, M0), ER positive, NC positive, HER2/naomi overexpressed, high-grade invasive ductal carcinoma of the right breast with lymphovascular invasion. S/p lumpectomy and sentinel lymph node biopsy on 06/30/2024. Mammographically detected ER positive, NC positive, HER2/naomi positive (IHC 3+), grade invasive ductal carcinoma of the right breast, status post needle core biopsy (05/14/2024) Patient is BRCA 1and2 negative. Strong family history of breast cancer (patient's sister, mother, grandmother and great-grandmother had breast cancers DATE OF DIAGNOSIS: 06/30/2024 STAGE/TNM: Stage II(pT1c, pN1a, M0), ER positive, NC positive, HER2/naomi overexpressed, high-grade invasive ductal carcinoma of the right breast with lymphovascular invasion. S/p lumpectomy and sentinel lymph node biopsy on 06/30/2024. TREATMENT HISTORY: Care?Plan Start?Date Cycle Day Intent Zoledronic?Acid?4?mg?adjuvant 05/27/2025 1 180 Maintenance TCH?Perjeta?adjuvant 08/03/2024 1 21 Curative?(adjuvant) HISTORY OF PRESENT ILLNESS: Vera Correia is a 64-year-old ENG speaking female with following oncology history. 02/22/2024: Ms. Correia had bilateral diagnostic digital mammograms 03/31/2024: Ms. Correia had right breast diagnostic mammogram and ultrasound 04/23/2024: BRCA 1and2 negative 05/14/2024: Ms. 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 Tobacco?Use?Years:?45 Tobacco Use:?Smoked off/on x 45 yrs - 1 PPD at most - now 2 cig/day ETOH?Use:?Socially Drug?Note:?Denies Social?History?Note:?Lives?with? [facility] HISTORY: Menarche?-?Age:?10 Menopause:?51 Hormone?Use:?None :?0 Live?Births:?0 MEDICATIONS: 1. Arimidex - 1 mg 1 tab Daily 2. atorvastatin - 40 mg 1 tab Daily 3. CeleBREX - 100 mg 1 Capsule Twice a Day 4. Emend - 125 mg 5. Flexeril - 10 mg 1 tab Daily 6. Imodium A-D - 2 mg 2 mg daily as directed 7. Lexapro - 10 mg 1 tab Daily 8. montelukast - 10 mg 1 tab Daily 9. oxyBUTYnin chloride - 15 mg 1 tab Daily 10. prednisone - 5 mg 1 tab twice a day 11. Wellbutrin XL - 150 mg 1 tab Daily Medications Last Reconciled by Yeny Perez MD on 07/29/2025 ALLERGIES: No Known Drug Allergies REVIEW OF SYSTEMS: A complete 14-point review of systems was performed and is negative except as noted in interval history. PHYSICAL EXAMINATION: VITAL SIGNS: Temperature?97, B/P?134/84, Oxygen?Saturation?96% Weight?226?lbs (Change?since?07/28/25:?-7.2?lbs) PAIN: 0 - No pain ECOG Performance Status: 0 - Asymptomatic and fully active As documented above GENERAL APPEARANCE: Appears well, in no apparent distress, appropriately interactive. Physical Examination Patient is alert oriented x 4 Breathing is good at room air Move all extremities Swelling in hands and feet are minimal Able to stand and walk well Move congruent to the situation Skin no rash PULMONARY: Normal respiratory effort, no respiratory distress or use of accessory muscles, speaking in full sentences, no tachypnea. EXTREMITIES: No pedal edema or cyanosis. As per interval history SKIN: Normal skin appearance. NEUROLOGIC: Alert and oriented x4. PSHYCHIATRIC: Appropriate affect, mood normal, behavior normal, intact thought and speech. LABORATORY DATA: I have personally reviewed and interpreted each of the patient?s relevant lab tests, abnormal findings are below: Date 07/14/25 07/28/25 ??WHITE?BLOOD?COUNT?(Thou/mm3) 8.5 11.8?H ??RED?BLOOD?COUNT?(Miln/mm3) 3.56?L 3.73?L ??HEMOGLOBIN?(gm/dl) 10.6?L 11.3?L ??HEMATOCRIT?(%) 32.1?L 33.6?L ??PLATELET?COUNT?(Thou/mm3) 216 241 ??NEUTROPHILS?%,?AUTO?(%) 67 80 ??LYMPH?%,?AUTO?(%) 22 12 ??NEUTROPHILS,?AUTO?(Thou/mm3) 5.7 9.5?H ??GLUCOSE,RANDOM?(mg/dL) 100 86 ??BLOOD?UREA?NITROGEN?(mg/dL) 18 14 ??CREATININE?(mg/dL) 0.60 0.60 ??SODIUM?(mmol/L) 139 141 ??POTASSIUM?(mmol/L) 4.2 4.1 ??CHLORIDE?(mmol/L) 107 107 ??CrCl?(CandG)?(ml/min) 116.54 116.37 ??AST/SGOT?(Unit/L) 13 19 ??ALT/SGPT?(Unit/L) 13 19 ??ALKALINE?PHOSPHATASE?(Unit/L) 65 66 ??BILIRUBIN,?TOTAL?(mg/dL) 0.3 0.3 ??PROTEIN?TOTAL?(gm/dl) 5.9 6.4 ??ALBUMIN,?SERUM?(gm/dl) 3.7 4.0 ??GLOBULIN?(gm/dl) 2.2?L 2.4 ??ALBUMIN/GLOBULIN?RATIO 1.7 1.7 ??CALCIUM,?SERUM?(mg/dL) 10.2 10.1 ??CALCIUM?SERUM?(CORRECTED)?(mg/dL) 10.4?H 10.1 ASSESSMENT/PLAN: Vera Miguel, 64-year-old female with stage 2 high-grade breast cancer, completed Perjeta 2 weeks ago, presenting with joint pain and swelling. Breast Cancer Assessment: Stage 2 high-grade breast cancer, ER/NC positive. Patient completed chemotherapy including Perjeta 2 weeks ago. Scheduled to continue Herceptin and Perjeta. Recent echocardiogram in January showed mild regurgitation without stenosis. Left ventricular function remains good. Patient reports continued weight loss post-chemotherapy. 1. Stage IIa (pT1c, pN1a, M0), ER positive, NC positive, HER2/naomi overexpressed, high-grade invasive ductal carcinoma of the right breast with lymphovascular invasion. S/p lumpectomy and sentinel lymph node biopsy on 06/30/2024. On chemotherapy with TCH and Perjeta since July 2024 mammographically detected ER positive, NC positive, HER2/naomi positive (IHC 3+), grade invasive ductal carcinoma of the right breast, status post needle core biopsy (05/14/2024). Mammogram showed the mass to be 10 mm in size Strong family history of breast cancers (patient's sister, mother, grandmother as well as great-grandmother had breast cancers) Ms. Correia is BRCA 1 and 2 negative Completed adjuvant radiation - Continue Herceptin and Perjeta as scheduled - Continue Arimidex 1 tablet PO daily (patient's choice of morning or bedtime) - Order Cheri test for monitoring every 3 months and is scheduled for - Recommend natural fruit-infused water for hydration - Encourage maintaining low body fat content RTC in 3 months Polyarthralgia Assessment: At last visit patient was started on prednisone 5 mg twice daily patient is now doing better Swelling have decreased plan: Continue prednisone for now with food Follow-up with rheumatology Advised to continue Arimidex complete Herceptin and Perjeta and continue taking calcium and vitamin D will start Zometa as patient is now cleared by dentist ORDERS: Order # Description [id number] Comprehensive Metabolic Panel - 12 + CBC with Auto Diff + CA 15-3 [id number] Follow Up Appointment [id number] CBC + Comprehensive Metabolic Panel [id number] Lab Appointment [id number] MD Follow Up [id number] Scan + Chest + With Contrast [id number] Comprehensive Metabolic Panel - 12 + CBC with Auto Diff [id number] CA 15-3 [id number] Infusion 1 Hour [id number] Infusion 1 Hour [id number] Infusion 1 Hour [id number] Infusion 1 Hour [id number] Infusion 1 Hour RETURN TO CLINIC: I reviewed the diagnosis, prognosis, and recommended treatment/procedure options with the patient (and/or their legal technical sales representatives), including the potential benefits, risks, side effects and alternative therapies. We also discussed the option of no treatment and the possibility of clinical trial participation, if applicable. All questions were addressed, and they demonstrated understanding. They provided informed consent to proceed with the proposed plan of care. BILLING AND COMPLIANCE: I reviewed external records from providers outside my specialty as summarized above. I spent a total of 50 minutes on this patient?s care on the day of their visit excluding time spent related to any billed procedures. This time includes time spent with the patient as well as time spent documenting in the medical record, reviewing patients records and tests, obtaining history, placing orders, communicating with other healthcare professionals, counseling the patient, family or caregiver, and/or care coordination for the diagnoses above. Electronically Signed by: Kareem Abarca MD T: 3:56 PM CC: Manoj?Jewels,? PCP: Kelle Sarabia Referring: Kelle Sarabia This document was completed utilizing speech recognition software. Grammatical errors, random word insertions, pronoun errors, and incomplete sentences are an occasional consequence of this system due to software limitations, ambient noise, and hardware issues. Any formal questions or concerns about the content, text or information contained within the body of this dictation should be directly addressed to the provider for clarification.
[2025-08-03 15:30] LABS: Basophils # (Auto) 0.1 Thou/mm3 (0.0-0.2); Basophils % (Auto) 1 % (0-2.5); Eosinophils # (Auto) 0.1 Thou/mm3 (0.0-0.5); Eosinophils % (Auto) 1 % (0-10); Hematocrit 33.9 % (36.0-46.0); Hemoglobin 11.2 g/dL (12.0-16.0); Immature Granulocytes Auto 0.04 Thou/mm3 (0.00-0.00); Lymphocytes # (Auto) 1.5 Thou/mm3 (1.0-4.8); Lymphocytes % (Auto) 13 % (10-50); Mean Corpuscular HGB Conc 33.0 g/dl (31.0-37.0); Mean Corpuscular Hemoglobin 29.7 pg (25.0-35.0); Mean Corpuscular Volume 90 fL (80-100); Monocytes # (Auto) 0.7 Thou/mm3 (0.0-0.8); Monocytes % (Auto) 6 % (0-12); Neutrophils # (Auto) 8.7 Thou/mm3 (1.8-7.7); Neutrophils % (Auto) 79 % (37-80); Nucleated Red Blood Cell # 0.00 Thou/mm3 (0.00-0.00); Nucleated Red Blood Cell % 0 /100 WBC (0); Platelet Count 238 Thou/mm3 (140-440); RDW Standard Deviation 45.6 fL (36.4-46.3); Red Blood Count 3.77 Miln/mm3 (4.00-5.20); White Blood Count 11.1 Thou/mm3 (3.6-11.0)
[2025-08-03 15:47] LABS: Alanine Aminotransferase 17 U/L (10-49); Albumin, Serum 4.0 gm/dL (3.4-4.8); Albumin/Globulin Ratio 1.7 (1.2-2.2); Alkaline Phosphatase 67 U/L (46-116); Anion Gap 8 (7-16); Aspartate Amino Transferase 17 U/L (0-34); BUN/Creatinine Ratio 27 Ratio (12-20); Bilirubin,Total 0.3 mg/dL (0.3-1.2); Blood Urea Nitrogen 19 mg/dL (9-23); Calcium 10.2 mg/dL (8.3-10.6); Calcium (Corrected) 10.2 mg/dL (8.5-10.1); Carbon Dioxide 26.0 mMol/L (20.0-31.0); Chloride 107 mMol/L (98-107); Creatinine (Component) 0.7 mg/dL (0.6-1.3); Globulin 2.4 gm/dL (2.3-3.5); Glucose 112 mg/dL (74-106); Osmolality,Calculated 284 (275-295); Potassium 4.0 mMol/L (3.4-5.1); Sodium 141 mMol/L (136-145); Total Protein 6.4 gm/dL (5.7-8.2); eGFR > 60 See Note
[2025-08-03 16:07] LABS: CA 15-3 15.8 U/mL (<32.4)
== END 2025-08-14 23:59 | disposition home or self-care (01) ==
LOC: SCTC 13:19
PROVIDERS: PCP Family Medicine; Referring Provider Family Medicine; Visit Provider Internal Medicine Hematology & Oncology
DX: Z51.11 Encounter for antineoplastic chemotherapy (principal); C50.411 Malignant neoplasm of upper-outer quadrant of right female breast; Z17.410 Hormone receptor positive with human epidermal growth factor receptor 2 positive status; Z92.3 Personal history of irradiation; Z79.811 Long term (current) use of aromatase inhibitors; Z80.3 Family history of malignant neoplasm of breast; M25.50 Pain in unspecified joint
CPT/HCPCS: 36591; 80053; 85025; 86300; 96413; 96417; 99212; A4216; J1642; J7040; J7050; J9306; Q5117; G0463

== ENCOUNTER → 2025-08-27 | Outpatient (CLI) | payer OTHER, SELFPAY ==
[2025-08-27 10:10] LABS: Basophils # (Auto) 0.0 Thou/mm3 (0.0-0.2); Basophils % (Auto) 0 % (0-2.5); Eosinophils # (Auto) 0.3 Thou/mm3 (0.0-0.5); Eosinophils % (Auto) 3 % (0-10); Hematocrit 33.8 % (36.0-46.0); Hemoglobin 11.3 g/dL (12.0-16.0); Immature Granulocytes Auto 0.04 Thou/mm3 (0.00-0.00); Lymphocytes # (Auto) 1.5 Thou/mm3 (1.0-4.8); Lymphocytes % (Auto) 16 % (10-50); Mean Corpuscular HGB Conc 33.4 g/dl (31.0-37.0); Mean Corpuscular Hemoglobin 30.5 pg (25.0-35.0); Mean Corpuscular Volume 91 fL (80-100); Monocytes # (Auto) 0.8 Thou/mm3 (0.0-0.8); Monocytes % (Auto) 9 % (0-12); Neutrophils # (Auto) 6.5 Thou/mm3 (1.8-7.7); Neutrophils % (Auto) 71 % (37-80); Nucleated Red Blood Cell # 0.00 Thou/mm3 (0.00-0.00); Nucleated Red Blood Cell % 0 /100 WBC (0); Platelet Count 227 Thou/mm3 (140-440); RDW Standard Deviation 48.3 fL (36.4-46.3); Red Blood Count 3.71 Miln/mm3 (4.00-5.20); White Blood Count 9.2 Thou/mm3 (3.6-11.0)
[2025-08-27 10:29] LABS: Alanine Aminotransferase 18 U/L (10-49); Albumin, Serum 4.3 gm/dL (3.4-4.8); Albumin/Globulin Ratio 2.0 (1.2-2.2); Alkaline Phosphatase 67 U/L (46-116); Anion Gap 4 (7-16); Aspartate Amino Transferase 18 U/L (0-34); BUN/Creatinine Ratio 25 Ratio (12-20); Bilirubin,Total 0.3 mg/dL (0.3-1.2); Blood Urea Nitrogen 15 mg/dL (9-23); C-Reactive Protein 0.8 mg/dL (0.0-0.9); Calcium 10.3 mg/dL (8.3-10.6); Calcium (Corrected) 10.3 mg/dL (8.5-10.1); Carbon Dioxide 31.4 mMol/L (20.0-31.0); Chloride 108 mMol/L (98-107); Creatinine (Component) 0.6 mg/dL (0.6-1.3); Globulin 2.1 gm/dL (2.3-3.5); Glucose 77 mg/dL (74-106); Osmolality,Calculated 284 (275-295); Potassium 4.6 mMol/L (3.4-5.1); Sodium 143 mMol/L (136-145); Total Protein 6.4 gm/dL (5.7-8.2); eGFR > 60 See Note
[2025-08-27 11:01] LABS: Sed Rate (ESR) 25 mm/hr (0-30)
== END | disposition home or self-care (01) ==
LOC: COPL 09:29
PROVIDERS: PCP Family Medicine; Referring Provider Internal Medicine; Visit Provider Internal Medicine
DX: E78.49 Other hyperlipidemia (principal); F32.A Depression, unspecified; M19.90 Unspecified osteoarthritis, unspecified site; M25.561 Pain in right knee; Z13.850 Encounter for screening for traumatic brain injury; Z78.0 Asymptomatic menopausal state; Z85.3 Personal history of malignant neoplasm of breast
CPT/HCPCS: 36415; 80053; 85025; 85652; 86140

== ENCOUNTER → 2025-09-21 | Outpatient (CLI) | payer OTHER, SELFPAY ==
--- NOTE | 2025-09-21 14:00 | XR_ITS ---
Examination: CT chest with intravenous contrast 2-D sagittal and coronal reconstructions Exam date and time: September,, 1445 hours INDICATIONS: CT chest May 12, 2025 5 mm pulmonary nodule right upper lobe 4 mm pulmonary nodule left upper lobe CTDI:vol (mGy) 17.7 DLP: (mGycm) 577 Technique: Multiple axial sections of the thorax have been obtained. Sections have been obtained, 3 mm slice thickness. Mediastinal and lung density settings have been obtained. Intravenous contrast administered, 60 cc Isovue-370. 2-D sagittal, coronal images obtained. Low dose protocols were performed. One or more of the following dose reduction techniques were used; automated exposure control, adjustment of the mA and/or KV according to patient size, use of iterative reconstruction technique. Findings: No thoracic aortic aneurysm dilatation No pulmonary artery emboli No paratracheal tracheobronchial or bronchopulmonary adenopathy More pronounced density in the right breast, clinical correlation advised Stable 4 mm pulmonary nodule left upper lobe Stable pulmonary nodules No new pulmonary nodules No visualized liver or splenic lesion Gallstones No pancreatic mass Normal adrenal glands IMPRESSION: Stable pulmonary nodules No new pulmonary nodules More pronounced density diffusely in the right breast, recommend bilateral breast sonography follow-up Cholelithiasis
== END | disposition home or self-care (01) ==
LOC: SCAT 13:16
PROVIDERS: PCP Family Medicine; Referring Provider Internal Medicine Hematology & Oncology; Visit Provider Internal Medicine Hematology & Oncology
DX: R91.8 Other nonspecific abnormal finding of lung field (principal); K80.20 Calculus of gallbladder without cholecystitis without obstruction; C50.411 Malignant neoplasm of upper-outer quadrant of right female breast
CPT/HCPCS: 71260; A4649; Q9967

== ENCOUNTER → 2025-10-02 | Outpatient (CLI) | payer OTHER, SELFPAY ==
--- NOTE | 2025-10-02 10:30 | ECHO_ITS ---
Patient Info Name: Vera Correia Age: 64 years : 1960 Gender: Female Ht: 165 cm Wt: 92 kg BSA: 2.09 m2 BP: 134 / 90 mmHg HR: 86 bpm Exam Date: 10/02/2025 10:30 AM Admit Date: 10/02/2025 Site: [facility] Room Number: OP Patient Status: O Exam Type: CA echo doppler complete Fashion Buyer: Melany Morin Ordering Physician: Kareem Abarca Referring Physician: Kareem Abarca Study Info Indications Malignant neoplasm of upper-outer quadrant of right female b - Primary Location: SDIM Left Ventricular Outflow Tract Name Value Normal LVOT 2D LVOT Diameter 2.1 cm LVOT Doppler LVOT Peak Velocity 113 cm/s LVOT Mean Gradient 3 mmHg LVOT VTI 25 cm LVOT VTI/AV VTI Ratio 0.8 LVOT Stroke Volume 85 ml Pulmonic Valve Name Value Normal PV Doppler PV Peak Velocity 96 cm/s Mitral Valve Name Value Normal MV Doppler MV Decel [place] 360 cm/s2 MV PHT 53 ms MV Area (PHT) 4.1 cm2 4.0-5.0 MV Diastolic Function MV E Peak Velocity 66 cm/s MV A Peak Velocity 68 cm/s MV E/A 1.0 MV Annular TDI MV Septal e' Velocity 5.8 cm/s MV E/e' (Septal) 11.4 MV Lateral e' Velocity 14.5 cm/s MV E/e' (Lateral) 4.6 MV e' Average 10.14 cm/s MV E/e' (Average) 8.0 Tricuspid Valve Name Value Normal TV Regurgitation Doppler TR Peak Velocity 121 cm/s Estimated PAP/RSVP RA Pressure 3 mmHg <=5 PA Systolic Pressure 9 mmHg <36 RV Systolic Pressure 9 mmHg <36 TV Annular TDI TV Lateral Viv s' Velocity 14.6 cm/s >=9.5 Aortic Valve Name Value Normal AV 2D/MM AV Cusp Sep (MM) 1.7 cm AV Doppler AV Peak Velocity 167 cm/s AV Mean Gradient 5 mmHg AV VTI 31 cm AV Area (Cont Eq VTI) 2.8 cm2 >=3.0 AV Area (Cont Eq Poncho) 2.3 cm2 AV DI (Poncho) 0.68 AV Regurgitation 2D LVOT Area 3.5 cm2 Ventricles Name Value Normal LV Dimensions 2D/MM IVS Diastolic Thickness (2D) 1.1 cm 0.6-0.9 LVID Diastole (2D) 4.4 cm 3.8-5.2 LVIW Diastolic Thickness (2D) 1.3 cm 0.6-0.9 LVID Systole (2D) 2.9 cm 2.2-3.5 LVIW Systolic Thickness (2D) 4.3 cm LVOT Diameter 2.1 cm LV Mass (2D Cubed) 191.33 g 67.00-162.00 LV Mass Index (2D Cubed) 92 g/m2 43-95 Relative Wall Thickness (2D) 0.59 <=0.42 IVS/LVIW Diastolic Thickness (2D) 0.85 0.00-1.50 LV Fractional Shortening/Ejection Fraction 2D/MM LV Fractional Shortening (2D) 34 % 27-45 LV EF (2D Teichholz) 63 % RV Dimensions 2D/MM TV Lateral Viv s' Velocity 14.6 cm/s >=9.5 Atria Name Value Normal LA Dimensions LA Volume (4C A-L) 62 ml LA Volume (BP A-L) 57 ml Left Ventricle Left ventricular chamber dimension is normal. Left ventricular systolic function is normal with visually estimated ejection fraction of 60-65%. There is mild concentric hypertrophy noted in the left ventricle. Left ventricular segmental wall motion is normal. There is grade I diastolic dysfunction in the left ventricle. Right Ventricle Right ventricular chamber dimension is normal. Right ventricular systolic function is normal. Left Atrium Left atrial chamber dimension is normal. Right Atrium Right atrial chamber dimension is normal. Aortic Valve The aortic valve is trileaflet. There is mild aortic valve sclerosis. There is no aortic valve stenosis with a peak velocity of 167 cm/s, mean gradient of 5 mmHg, and aortic valve area of 2.8 cm2. There is no aortic valve regurgitation. Pulmonic Valve The pulmonic valve is normal. There is no pulmonic valve stenosis. There is no pulmonic regurgitation. Mitral Valve The mitral valve has normal leaflets. There is no mitral valve stenosis. There is trace mitral valve regurgitation. Tricuspid Valve The tricuspid valve leaflets are normal. There is no tricuspid valve stenosis. There is trace tricuspid valve regurgitation. No pulmonary hypertension, estimated pulmonary arterial systolic pressure is 9 mmHg and systemic blood pressure of 134 mmHg in systole. Pericardium/Pleural The pericardium appears normal. There is no pericardial effusion. No pleural effusion visualized. Inferior Vena Cava Normal inferior vena cava with >50% collapse upon inspiration consistent with normal right atrial pressure, 3 mmHg. Aorta The aortic measurements are indexed to age and body surface area. The aortic root at the sinus of Valsalva is not well visualized. The prox ascending aorta is not well visualized. Summary 1. Left ventricle size is normal and systolic function is normal. Estimated ejection fraction is 60-65%. There is grade I diastolic dysfunction. 2. Right ventricle chamber size is normal and systolic function is normal. Estimated RVSP is 9 mmHg. 3. There is mild aortic valve sclerosis with no stenosis and no regurgitation. Trace MR and TR. 4. Normal IVC with estimated RA pressure 3 mmHg. 5. Prior study from 05/24/2025. Report Signatures Finalized by Ervin Olivares on 10/02/2025 08:57 PM
== END | disposition home or self-care (01) ==
PROVIDERS: PCP Family Medicine; Referring Provider Internal Medicine Hematology & Oncology; Visit Provider Internal Medicine Hematology & Oncology
DX: I50.30 Unspecified diastolic (congestive) heart failure (principal); I35.8 Other nonrheumatic aortic valve disorders; I08.1 Rheumatic disorders of both mitral and tricuspid valves; C50.411 Malignant neoplasm of upper-outer quadrant of right female breast
CPT/HCPCS: 93306